=== PATIENT | female | born 1970 ===

== ENCOUNTER 2017-02-26 15:32 | Inpatient (IN) ==
[2017-02-26] MEDS ORDERED: SODIUM CHLORIDE 0.9% 1,000 ML IV STA (16:36)
[2017-02-26] MEDS ORDERED: PANTOPRAZOLE 40 MG VIAL IV STA (16:47)
[2017-02-26] MEDS ORDERED: HYDROmorphone 2 MG/1 ML VIAL IV STA (16:47)
[2017-02-26] MEDS ORDERED: ONDANSETRON 4 MG/2 ML VIAL IV STA (16:47)
[2017-02-26] MEDS ORDERED: PANTOPRAZOLE 40 MG VIAL IV ONE (16:59)
[2017-02-26] MEDS ORDERED: ONDANSETRON 4 MG/2 ML VIAL ONE (16:59)
[2017-02-26] MEDS ORDERED: HYDROmorphone 2 MG/1 ML VIAL ONE (17:00)
--- NOTE | 2017-02-26 17:13 | Emergency Department Note ---
Ama Patel Emily, am scribing for, and in the presence of, Aravind Vasquez MD 16: 34. Christina Patel Charles R, MD, personally performed the services described in this documentation, ascribed by Cata Serrato in my presence, and it is both accurate and complete 713 . Arrival - Arrival Chief Complaint: Abdominal / Flank Pain Stated Complaint: abdominal pain ED Nursing Triage Note: Transfer from [facility] for further evaluation of pancreatitis. c/o right upper quadrant abdominal pain onset one week ago. +nausea/vomiting. +chills. Mode of Arrival: Stretcher Limitations: No Limitations Source: Patient - History of Present Illness HPI Narrative: Pt is a 46 y/o female who was transferred from [place] to ED for further evaluation of pancreatitis. Pt c/o RUQ pain along with N/V, breathing hurts chills and diaphoresis that has been ongoing for a week. Pt is a former ETOH user. PMHx of cholecystectomy - January 15, 2017 in [place]; filter in stomach, Lupus , hx of blood clot. Pt admits to being hospitalized few months ago for pancreatitis. Onset (ago): week(s) Consistency: constant Severity: moderate Severity scale (1-10): 5 Quality: aching Date of Last Menstrual Period: hyst Allergies/Adverse Reactions: Allergies Allergy/AdvReac Type Severity Reaction Status Date / Time No Known Allergies Allergy Verified 02/26/17 15:41 Home Medications: Home Medications Medication Instructions Recorded Confirmed Type Baclofen Tab [Lioresal] 10 mg PO TID 09/13/15 04/19/16 History Gabapentin Cap/Tab [Neurontin 600 mg PO QID 09/13/15 04/19/16 History Cap/Tab] Lisinopril 10 mg PO DAILY 09/13/15 04/19/16 History Clindamycin Cap [Cleocin Cap] 300 mg PO Q6HR 10 Days 04/27/16 Rx Diclofenac 1% Gel [Voltaren 1% Gel] 1 applic TOP QID #7 gel 04/27/16 Rx Insulin Detemir [Levemir] 95 unit SUBCUT BEDTIME #10 ml 04/27/16 Rx Insulin Lispro [HumaLOG] 35 unit SUBCUT AC BREAKFAST #7 ml 04/27/16 Rx Insulin Lispro [HumaLOG] See Protocol SUBCUT ACHS #7 ml 04/27/16 Rx Rivaroxaban [Xarelto] 20 mg PO DAILY W/BREAKFAST 30 Days 04/27/16 Rx oxyCODONE/ACETAMINOPHEN 5-325 2 tablet PO Q6H PRN #20 tablet 04/27/16 Rx [Percocet 5-325] Review of System - Review of System 12 point system: reviewed and no additional remarkable complaints except as stated - Review of System Constitutional: Present: chills, diaphoresis. Absent: fever Respiratory: Absent: respiratory distress Cardiovascular: Absent: chest pain Gastrointestinal: Present: abdominal pain, nausea, vomiting Musculoskeletal: Absent: arm pain, back pain, leg pain, neck pain Skin: Absent: rash Neurological: Absent: headache Medical,Surgical,& Family Hx - Medical History Cardio: History of: Hypertension Neurology: History of: Peripheral Neuropathy Endocrine: History of: Diabetes Mellitus (IDDM) Rheumatology: History of;: Rheumatoid Arthritis Respiratory: History of: Pulmonary Embolism Hematology: History of: Blood Disorders (Lupus anticoagulant) Other: History of: Miscellaneous Medical Problems (DVT left leg) - Surgical History Thoracic Surgeries: Patient denies;: Organ Transplant Abdominal Surgeries: Surgical HX of: Cholecystectomy Reproductive Surgeries: Surgical HX of;: Hysterectomy Patient denies;: Gynecologic Surgery - Family History Family History: Reports;: Family Diabetes, Family Hypertension Denies;: Family Cancer - Social History Smoking Status: Unknown if ever smoked Frequency of Alcohol Use: None Type of Drug Use: None Functional capacity: independent ambulation Exam Vital Signs: Vital Signs Temperature 97.1 F L 02/26/17 16:28 Pulse Rate 89 02/26/17 16:28 Respiratory Rate 20 02/26/17 16:28 Blood Pressure 118/65 02/26/17 16:28 O2 Sat by Pulse Oximetry 97 02/26/17 15:32 - General General appearance: alert, in no apparent distress - Head Head exam: Present: atraumatic, normocephalic - Eye Eye exam: Present: PERRL, EOMI - ENT ENT exam: Present: mucous membranes moist. Absent: mucous membranes dry - Neck Neck exam: Present: full ROM. Absent: tenderness - Chest Chest inspection: Present: symmetric chest wall rise. Absent: tenderness - Respiratory Respiratory exam: Present: normal lung sounds bilaterally. Absent: respiratory distress - Cardiovascular Cardiovascular exam: Present: regular rate, normal rhythm, normal heart sounds - Abdominal Exam Abdominal exam: Present: soft, tenderness (RUQ), diminished bowel sounds. Absent: distention, guarding, rebound, normal bowel sounds - Extremities Exam Extremities exam: Present: full ROM. Absent: tenderness, pedal edema - Neurological Exam Neurological exam: Present: alert, oriented X3, CN II-XII intact. Absent: motor sensory deficit - Psychiatric Psychiatric exam: Present: normal affect, normal mood - Skin Skin exam: Present: warm, dry Course - Consultations Consultation #1: Hospitalist will admit patient Time: 17:12 Results - Labs Lab Results: I have reviewed the patients labs Labs: All labs from previous facility reviewed Disposition Clinical Impression: Abdominal pain, Pancreatitis, Epigastric pain, Lupus anticoagulant (LAC) with hemorrhagic disorder, History of DVT (deep vein thrombosis) Case discussed with: patient Disposition: Still a Patient Condition: Stable Time of Disposition: 17:13
--- NOTE | 2017-02-26 17:20 | EKG Report ---
Stationary ECG Study [facility] Test Date: 02/26/2017 5:21:40 PM Pat Name: ARLET LINDQUIST Department: Room: Gender: F Clinical Administrative Coordinator: : 1970 Requested by: Aravind Cooper Order Number: [id number] Reading MD: RICCO LOBATO Intervals [place] Rate: 85 P: 29 NC: 146 QRS: 38 QRSD: 82 T: 45 QT: 355 QTc: 398 Interpretive Statements SINUS RHYTHMAt 85 bpm POSSIBLE RIGHT VENTRICULAR CONDUCTION DELAY NC WP Electronically Signed On 02-28-17 14:09:51 CDT by RICCO LOBATO [email or web address]
--- NOTE | 2017-02-26 17:37 | Hospitalist History & Physical ---
Assessment and Plan (1) Abdominal pain Status: Acute Current Visit: Yes (2) Pancreatitis Status: Acute Assessment and plan: We will rehydrate; keep NPO, manage pain. Will start empiric antibiotics. Will consult GI to evaluate. Current Visit: Yes (3) Hypertension Status: Acute Assessment and plan: Will monitor and adjust as needed. Current Visit: No Qualifiers: Hypertension type: essential hypertension Qualified Code(s): I10 - Essential (primary) hypertension (4) Chronic anticoagulation Status: Chronic Assessment and plan: The patient has history of DVT; however not on any agents at the present time. We will start Lovenox and apply scd's. Current Visit: No (5) Diabetes mellitus Status: Chronic Assessment and plan: Will obtain HGA1C; start accuchecks with sliding scale; consult adult educator. Current Visit: No Qualifiers: Diabetes mellitus type: type 2 Diabetes mellitus complication status: with unspecified complications History of Present Illness Chief complaint: abdominal pain/pancretitis History of present illness: This is very unfortunate 46 year old female that presented to the ED at [facility] as a lateral transfer from the [facility] for evaluation of right upper quadrant pain. She has a rather extensive medical history significant for hypertension, diabetes mellitus , pulmonary embolism, deep vein thrombosis, alcohol abuse, fatty liver disease, peripheral neuropathy, rheumatoid arthritis, and lupus anticoagulant syndrome. She has a surgical history of toe amputations, hysterectomy, cholecystectomy, IVC filter placement. The patient presented to the ED at [facility] today with a compliant of abdominal pain, nausea, vomiting, shortness of breath, chills, and diaphoresis. She reports the onset of symptoms one week prior to presentation. She atrributed the presenting symptoms to her recent removal of her gall bladder in 12/2016. CT of abdomen was obtained which revealed no acute intra-abdominal abnormality is seen. Labs were obtained which revealed a lipase of 975, CRP of 2.9 and glucose of 561. She was transported [facility] for continuation of care. After discussion with Dr. Vasquez and Dr. Steel, the patient will be admitted to the hospitalist services for continuation of care. We will consult GI to evaluate. Home Medications Medication Instructions Recorded Confirmed Type Baclofen Tab [Lioresal] 10 mg PO TID 09/13/15 04/19/16 History Gabapentin Cap/Tab [Neurontin 600 mg PO QID 09/13/15 04/19/16 History Cap/Tab] Lisinopril 10 mg PO DAILY 09/13/15 04/19/16 History Clindamycin Cap [Cleocin Cap] 300 mg PO Q6HR 10 Days 04/27/16 Rx Diclofenac 1% Gel [Voltaren 1% Gel] 1 applic TOP QID #7 gel 04/27/16 Rx Insulin Detemir [Levemir] 95 unit SUBCUT BEDTIME #10 ml 04/27/16 Rx Insulin Lispro [HumaLOG] 35 unit SUBCUT AC BREAKFAST #7 ml 04/27/16 Rx Insulin Lispro [HumaLOG] See Protocol SUBCUT ACHS #7 ml 04/27/16 Rx Rivaroxaban [Xarelto] 20 mg PO DAILY W/BREAKFAST 30 Days 04/27/16 Rx oxyCODONE/ACETAMINOPHEN 5-325 2 tablet PO Q6H PRN #20 tablet 04/27/16 Rx [Percocet 5-325] Allergies Allergy/AdvReac Type Severity Reaction Status Date / Time No Known Allergies Allergy Verified 02/26/17 15:41 Medical,Surgical,& Family Hx - Medical History Cardio: History of: Hypertension Neurology: History of: Peripheral Neuropathy Endocrine: History of: Diabetes Mellitus (IDDM) Rheumatology: History of;: Rheumatoid Arthritis Respiratory: History of: Pulmonary Embolism Other: History of: Miscellaneous Medical Problems (DVT left leg) - Surgical History Thoracic Surgeries: Patient denies;: Organ Transplant Abdominal Surgeries: Surgical HX of: Cholecystectomy Reproductive Surgeries: Surgical HX of;: Hysterectomy Patient denies;: Gynecologic Surgery - Family History Family History: Reports;: Family Diabetes, Family Hypertension Denies;: Family Cancer - Social History Smoking Status: Unknown if ever smoked Frequency of Alcohol Use: None Type of Drug Use: None Marital Status: Single Lives With:: Alone Functional capacity: independent ambulation 12 point system: reviewed and no additional remarkable complaints except as stated Exam - Constitutional General appearance: normal weight, no acute distress - Head Head exam: Present: normal inspection, normocephalic, atraumatic - Eye Eye exam: Present: EOMI, scleral icterus. Absent: conjunctival injection Pupils: Present: EDD, normal accommodation - ENT ENT exam: Present: normal exam, normal external ear exam, normal oropharynx - Neck Neck exam: Present: normal inspection. Absent: lymphadenopathy, meningismus, tenderness, thyromegaly - Respiratory Respiratory exam: Present: clear to auscultation bilaterally. Absent: rales, rhonchi, stridor, wheezes - Cardiovascular Cardiovascular exam: Present: regular rate and rhythm. Absent: diastolic murmur , gallop, systolic murmur - GI/Abdominal GI/Abdominal exam: Present: distended, guarding, tenderness - Extremities Exam Extremities exam: Present: full ROM, other (toe amputations) - Back Exam Back exam: Present: normal inspection - Neurological Exam Neurological exam: Present: alert, oriented X3, CN II-XII intact - Psychiatric Psychiatric exam: Present: flat affect - Skin Skin exam: Present: normal color, warm, dry Quality Measures - VTE Deep Vein Thrombosis/Pulmonary Embolism Present on Admission: No
[2017-02-26 18:23] LABS: Basophils % 0.3 % (0.0-0.8); Eosinophils # 0.1 10*3/uL (0.0-0.87); Eosinophils % 1.5 % (0.00-10.9); Hematocrit 31.5 VOL% (35.7-47.0); Hemoglobin 10.7 GM/DL (12.0-16.0); Immature Granulocytes % 0.4 %; Immature Granulocytes Absolute 0.03 #; Lymphocytes # 1.9 10*3/uL (1.4-4.0); Lymphocytes % 24.6 % (21.3-54.2); Mean Corpuscular Hemoglobin 29 PG (27-34); Mean Corpuscular Volume 85.1 FL (87-102); Mean Platelet Volume 11.2 FL (9.6-12.0); Monocytes # 0.8 10*3/uL (0.11-0.8); Monocytes % 9.9 % (1.7-12.7); Neutrophils # 4.9 10*3/uL (1.4-7.4); Neutrophils % 63.3 % (38.7-73.9); Platelet Count 261 T/CUMM (130-400); Red Cell Distribution Width 13.9 % (9.3-17.3); White Blood Count 7.8 T/CUMM (4-12)
[2017-02-26 18:33] LABS: Apearance,Urine Slightly Hazy (Clear); Bilirubin,Urine Negative (Negative); Blood, Urine Negative (Negative); Glucose,Urine (UA) >=500 mg/dL (Negative); Ketones,Urine Negative (Negative); Mucus,Urine Occasional /LPF (Occasional); Nitrite,Urine Negative (Negative); Protein,Urine >=500 MG/DL; RBC,Urine 2 /HPF (0-4); Squamous Epithelial Cell,Urine Occasional /HPF (0-10); Urine Color Yellow (Yellow); Urine Specific Gravity 1.028 (1.001-1.035); Urine Urobilinogen < 2.0 EU/DL (0.2-1.0); WBC,Urine 1 /HPF (0-6)
[2017-02-26 18:51] LABS: Alanine Aminotransferase 18 U/L (13-56); Albumin 2.4 G/DL (3.4-5.0); Alkaline Phosphatase 203 U/L (45-117); Amylase 53 U/L (25-115); Aspartate Amino Transferase 14 U/L (0-37); Bilirubin,Total < 0.39 MG/DL (0.2-1.0); Blood Urea Nitrogen 24 MG/DL (7-18); Calcium 7.5 MG/DL (8.5-10.1); Glucose 189 MG/DL (74-106); Magnesium 2.1 MG/DL (1.8-2.4); Osmolality,Calculated 287.4 MOS/KG (273-304); Sodium 140 MMOL/L (136-145); Total Protein 5.9 G/DL (6.4-8.3); Troponin I Only < 0.015 NG/ML (0.00-0.045)
[2017-02-26 19:05] LABS: Lactic Acid 0.8 MMOL/L (0.4-2.0)
[2017-02-26] MEDS: FAMOTIDINE 20 MG/2 ML VIAL IV SCH (20:57)
[2017-02-26] MEDS: ONDANSETRON 4 MG/2 ML VIAL IV PRN (20:57)
[2017-02-26] MEDS: SODIUM CHLORIDE 0.9% 1,000 ML IV SCH (20:57)
[2017-02-26] MEDS: cefTRIAXone 1,000 MG in SODIUM CHLORIDE 0.9% 100 ML IV SCH (20:57)
[2017-02-26] MEDS: MORPHINE 2 MG/1 ML SYRINGE IV PRN (20:58)
[2017-02-27] MEDS: ONDANSETRON 4 MG/2 ML VIAL IV PRN ×3 (01:00→20:22)
[2017-02-27] MEDS: MORPHINE 2 MG/1 ML SYRINGE IV PRN ×3 (01:01→10:09)
[2017-02-27] MEDS: SODIUM CHLORIDE 0.9% 1,000 ML IV SCH ×3 (05:41→23:18)
[2017-02-27 07:26] LABS: Basophils % 0.2 % (0.0-0.8); Eosinophils # 0.2 10*3/uL (0.0-0.87); Eosinophils % 3.3 % (0.00-10.9); Hematocrit 31.7 VOL% (35.7-47.0); Hemoglobin 10.4 GM/DL (12.0-16.0); Immature Granulocytes % 0.2 %; Immature Granulocytes Absolute 0.01 #; Lymphocytes # 1.7 10*3/uL (1.4-4.0); Lymphocytes % 30.2 % (21.3-54.2); Mean Corpuscular HGB Conc 32.8 GM/DL (32-36); Mean Corpuscular Hemoglobin 29 PG (27-34); Mean Corpuscular Volume 86.8 FL (87-102); Mean Platelet Volume 11.4 FL (9.6-12.0); Monocytes # 0.8 10*3/uL (0.11-0.8); Neutrophils % 52.1 % (38.7-73.9); Platelet Count 253 T/CUMM (130-400); Red Blood Count 3.65 MC/CUMM (3.8-5.5); Red Cell Distribution Width 14.1 % (9.3-17.3); White Blood Count 5.7 T/CUMM (4-12)
[2017-02-27 07:55] LABS: Alanine Aminotransferase 66 U/L (13-56); Albumin 2.1 G/DL (3.4-5.0); Alkaline Phosphatase 211 U/L (45-117); Aspartate Amino Transferase 104 U/L (0-37); Bilirubin,Total < 0.39 MG/DL (0.2-1.0); Blood Urea Nitrogen 16 MG/DL (7-18); Calcium 7.6 MG/DL (8.5-10.1); Total Protein 5.2 G/DL (6.4-8.3)
[2017-02-27 07:56] LABS: Glucose 243 MG/DL (74-106); Osmolality,Calculated 283.7 MOS/KG (273-304); Potassium 4.3 MMOL/L (3.5-5.1); Sodium 138 MMOL/L (136-145); Troponin I Only < 0.015 NG/ML (0.00-0.045)
[2017-02-27] MEDS: FAMOTIDINE 20 MG/2 ML VIAL IV SCH ×2 (08:40→20:24)
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
--- NOTE | 2017-02-27 09:19 | Hospitalist Progress Note ---
<Nisha Rasmussenda - Last Filed: 02/27/17 09:16> Assessment and Plan (1) Abdominal pain Status: Acute Assessment and plan: Continue pain management; awaiting GI evaluation. Current Visit: Yes (2) Pancreatitis Status: Acute Assessment and plan: We will rehydrate; keep NPO, manage pain. Will start empiric antibiotics. Will consult GI to evaluate. /-Patient has consumed clear liquid diet; complaining of increased abdominal pain. Will make NPO; awaiting GI to evaluate. Current Visit: Yes (3) Hypertension Status: Acute Assessment and plan: Will monitor and adjust as needed. Current Visit: No Qualifiers: Hypertension type: essential hypertension Qualified Code(s): I10 - Essential (primary) hypertension (4) Chronic anticoagulation Status: Chronic Assessment and plan: The patient has history of DVT; however not on any agents at the present time. We will start Lovenox and apply scd's. Current Visit: No (5) Diabetes mellitus Status: Chronic Assessment and plan: Will obtain HGA1C; start accuchecks with sliding scale; consult chemical educator. Current Visit: No Qualifiers: Diabetes mellitus type: type 2 Diabetes mellitus complication status: with unspecified complications Hospitalist: Subjective Interval history: Patient seen and examined. Reports multiple stools containing blood and abdominal pain throughout the night. Awaiting GI consult this AM for evaluation. Exam - Constitutional Vitals: Period Temp Pulse Resp BP Sys/Blount Pulse Ox Last 24 Hr 99.1 F-99.5 F 79-88 18-20 115-149/64-82 95-99 General appearance: normal weight, no acute distress - Head Head exam: Present: normal inspection, normocephalic - Eye Eye exam: Present: EOMI. Absent: conjunctival injection Pupils: Present: EDD, normal accommodation - ENT ENT exam: Present: normal exam, normal external ear exam, normal oropharynx - Neck Neck exam: Present: normal inspection. Absent: lymphadenopathy, meningismus, tenderness, thyromegaly - Respiratory Respiratory exam: Present: clear to auscultation bilaterally. Absent: rales, rhonchi, stridor, wheezes - Cardiovascular Cardiovascular exam: Present: regular rate and rhythm. Absent: carotid bruit, diastolic murmur, gallop, JVD, rubs, systolic murmur - GI/Abdominal GI/Abdominal exam: Present: hypoactive bowel sounds, tenderness. Absent: mass - Back Exam Back exam: Present: normal inspection - Neurological Exam Neurological exam: Present: alert, oriented X3, CN II-XII intact - Psychiatric Psychiatric exam: Present: normal affect, normal mood - Skin Skin exam: Present: normal color, warm, dry Results - Labs CBC & BMP: 02/27/17 06:38 02/27/17 06:38 Lab Results: I have reviewed the past 24 hour labs Quality Measures - VTE Contraindication to Pharmacological VTE Prophylaxis: High Risk of Bleeding <Elysia Looney - Last Filed: 02/27/17 16:12> Hospitalist: Subjective Interval history: Patient seen and examined independently of DASH Rasmussen, agree with history, assessment and plan as documented. Still complaining of abdominal pain. Reports that she is allergic to morphine. GI and heme consulted. Exam - Constitutional Vitals: Period Temp Pulse Resp BP Sys/Blount Pulse Ox Last 24 Hr 98.4 F-99.5 F 74-88 18-20 115-152/64-82 95-99 Results - Labs CBC & BMP: 02/27/17 06:38 02/27/17 06:38
[2017-02-27] MEDS ORDERED: DEXTROSE 50% 25 GM/50 ML VIAL IV PRN (11:37)
[2017-02-27] MEDS ORDERED: GLUCAGON 1 MG VIAL IM PRN (11:37)
[2017-02-27] MEDS ORDERED: BACLOFEN 10 MG TABLET PO PRN (13:03)
[2017-02-27] MEDS: GABAPENTIN 600 MG TABLET PO SCH ×2 (14:49→20:23)
[2017-02-27] MEDS: oxyCODONE/ACETAMINOPHEN 5-325 MG TABLET PO PRN (15:37)
[2017-02-27] MEDS: MEPERIDINE 25 MG/1 ML VIAL IM PRN ×2 (16:50→23:17)
[2017-02-27] MEDS: INSULIN REGULAR 100 UNIT/ML SUBCUT SCH ×2 (17:07→20:22)
[2017-02-27] MEDS: cefTRIAXone 1,000 MG in SODIUM CHLORIDE 0.9% 100 ML IV SCH (20:23)
[2017-02-27] MEDS ORDERED: NORTRIPTYLINE 25 MG CAPSULE PO SCH (21:00)
[2017-02-28] MEDS: MEPERIDINE 25 MG/1 ML VIAL IM PRN (05:59)
[2017-02-28] MEDS: SODIUM CHLORIDE 0.9% 1,000 ML IV SCH (08:17)
[2017-02-28] MEDS: FAMOTIDINE 20 MG/2 ML VIAL IV SCH (08:18)
[2017-02-28] MEDS: INSULIN REGULAR 100 UNIT/ML SUBCUT SCH ×2 (08:18→11:21)
[2017-02-28] MEDS: GABAPENTIN 600 MG TABLET PO SCH ×2 (08:19→14:46)
[2017-02-28 08:23] LABS: Basophils % 0.4 % (0.0-0.8); Eosinophils # 0.2 10*3/uL (0.0-0.87); Eosinophils % 2.9 % (0.00-10.9); Hematocrit 33.6 VOL% (35.7-47.0); Hemoglobin 11.2 GM/DL (12.0-16.0); Immature Granulocytes % 0.4 %; Immature Granulocytes Absolute 0.02 #; Lymphocytes # 1.5 10*3/uL (1.4-4.0); Lymphocytes % 27.6 % (21.3-54.2); Mean Corpuscular HGB Conc 33.3 GM/DL (32-36); Mean Corpuscular Hemoglobin 29 PG (27-34); Mean Corpuscular Volume 85.5 FL (87-102); Mean Platelet Volume 10.6 FL (9.6-12.0); Monocytes # 0.5 10*3/uL (0.11-0.8); Monocytes % 9.7 % (1.7-12.7); Neutrophils # 3.3 10*3/uL (1.4-7.4); Platelet Count 286 T/CUMM (130-400); Red Blood Count 3.93 MC/CUMM (3.8-5.5); Red Cell Distribution Width 13.7 % (9.3-17.3); White Blood Count 5.6 T/CUMM (4-12)
[2017-02-28 08:48] LABS: Albumin 2.2 G/DL (3.4-5.0); Bilirubin,Direct 0.1 MG/DL (0.0-0.20); Bilirubin,Indirect 0.9 MG/DL (0.0-1.0); Total Protein 5.5 G/DL (6.4-8.3)
[2017-02-28 08:49] LABS: Albumin 2.3 G/DL (3.4-5.0); Bilirubin,Total 0.5 MG/DL (0.2-1.0); Magnesium 1.8 MG/DL (1.8-2.4); Osmolality,Calculated 285.3 MOS/KG (273-304); Potassium 4.3 MMOL/L (3.5-5.1); Total Protein 5.5 G/DL (6.4-8.3)
[2017-02-28] MEDS ORDERED: LISINOPRIL 20 MG TABLET PO SCH (09:00)
[2017-02-28 09:39] LABS: Hepatitis B Surface Ag Quant 0.35 Index; Hepatitis B Surface Ag Result Negative (Negative)
[2017-02-28 09:46] LABS: Hepatitis A Ab IgM Quant < 0.02 Index; Hepatitis A Ab IgM Result Negative (Negative); Hepatitis B Core IgM Quant 0.16 Index; Hepatitis B Core IgM Result Negative (Negative); Hepatitis C Virus Ab Quant 0.11 Index; Hepatitis C Virus Ab Result Negative (Negative)
--- NOTE | 2017-02-28 10:29 | Hospitalist Progress Note ---
Assessment and Plan (1) Abdominal pain Status: Acute Assessment and plan: Continue pain management; awaiting GI evaluation. (2) Pancreatitis Status: Chronic Assessment and plan: We will rehydrate; keep NPO, manage pain. Will start empiric antibiotics. Will consult GI to evaluate. 5/4-Patient has consumed clear liquid diet; complaining of increased abdominal pain. Will make NPO; awaiting GI to evaluate. (3) Hypertension Status: Chronic Assessment and plan: Will monitor and adjust as needed. Qualifiers: Hypertension type: essential hypertension Qualified Code(s): I10 - Essential (primary) hypertension (4) Chronic anticoagulation Status: Chronic Assessment and plan: The patient has history of DVT; however not on any agents at the present time. We will start Lovenox and apply scd's. (5) Diabetes mellitus Status: Chronic Assessment and plan: Will obtain HGA1C; start accuchecks with sliding scale; consult diabetic educator. Qualifiers: Diabetes mellitus type: type 2 Diabetes mellitus complication status: with unspecified complications Hospitalist: Subjective Interval history: Patient seen and examined; no significant overnight events. Exam - Constitutional Vitals: Period Temp Pulse Resp BP Sys/Blount Pulse Ox Last 24 Hr 97.6 F-98.8 F 72-81 16-18 150-168/75-84 96-99 Results - Labs CBC & BMP: 02/28/17 07:54 02/28/17 07:54 Quality Measures - VTE Contraindication to Pharmacological VTE Prophylaxis: High Risk of Bleeding Specialty Discharge - Follow Up or Referrals Follow up with: Kvng Moses MD [Physician] - 03/17/17 10:45 am
--- NOTE | 2017-02-28 11:23 | History and Physical Update ---
History and Physical Update - History and Physical H&P was reviewed, the patient examined and there: are no changes in the patients condition since last H&P was completed. - Physical Exam Mental Status: alert and oriented Heart: regular rate and rhythm Lung: clear to auscultation Abdomen: within normal limits Vitals: within normal limits
[2017-02-28] MEDS ORDERED: PROPOFOL 200 MG/20 ML VIAL IV ONE (11:30)
[2017-02-28] MEDS ORDERED: LIDOCAINE 2% 5 ML VIAL ONE (11:30)
--- NOTE | 2017-02-28 11:42 | Anesthesia Post-Op ---
Anesthesia Post OP - Post Ansesthetic Evaluation Patient seen in post op: Yes Resp: within normal limits CV: within normal limits Mental: within normal limits Temp: within normal limits [id number]: within normal limits Nausea and Vomiting: within normal limits Pain: within normal limits
--- NOTE | 2017-02-28 11:43 | Operative Note ---
Date of procedure: 02/28/17 Pre-op diagnosis: Dysphagia, epigastric pain Procedure: Procedure: Esophagogastroduodenoscopy with bougie dilation esophagus Brief clinical abstract: Patient is a 47-year-old female with multiple medical issues including history of alcoholic liver disease. She is admitted with recent upper abdominal pain and has had dysphagia to solids for the last few months. She describes having previous dilation for GERD related esophageal stricture in [place] approximately 18 months ago. Patient's serum lipase here is normal. She had prominent pancreatic head on outside CT with only report available at present. Indication for procedure: Dysphagia, recent upper abdominal pain Endoscopic findings:[After informed consent was obtained, the patient was placed in the left lateral decubitus position. The gastroscope was inserted in the upper esophagus under direct vision with no resistance encountered. Esophageal mucosa appeared normal down to the squamocolumnar junction. There was a mildly obstructive fibrous appearing stricture at that level consistent with reflux etiology and with no erosions or ulcerations. Just distal to this was a small hiatal hernia. The endoscope was advanced in the stomach which was carefully examined including retroflexed view of the cardia and fundus with no other abnormality seen. The pyloric channel, duodenal bulb, second and third portion of the duodenum had normal appearance. The endoscope was removed and El dilator size 54 English was inserted in the upper esophagus and advanced beyond the level of the GE junction with mild resistance encountered. No blood was noted on the dilator afterwards and she had no chest pain. She appeared to tolerate the procedure well. Impression: #1 distal esophageal stricture secondary to GERD-status post bougie dilation #2 small hiatal hernia Recommendations: Continue PPI therapy for now. Try to advance diet and could probably discharge if tolerates. If recurrent abdominal pain, would probably repeat CT abdomen with oral and IV contrast. Anesthesia: MAC Surgeon / Physician: Gabriel Hurtado Estimated blood loss: none Specimens: none sent Condition: stable Disposition: post procedure unit Results - Labs CBC & BMP: 02/28/17 07:54 02/28/17 07:54 Discharge Plan - Discharge Medications No Action Lisinopril 20 mg PO DAILY Gabapentin Cap/Tab [Neurontin Cap/Tab] 400 mg PO TID Baclofen Tab [Lioresal] 10 mg PO TID PRN PRN Reason: Muscle Spasm Pantoprazole Tab [Protonix Tab] 40 mg PO DAILY Ondansetron Odt Tab [Zofran Odt] 0.5 tablet PO Q8HR PRN PRN Reason: Nausea metFORMIN XR [Glucophage Xr] 1 tablet PO DAILY W/SUPPER Insulin Aspart [NovoLOG FlexPen] 20 units SUBCUT QAM Insulin Detemir [Levemir] 20 unit SUBCUT TID Insulin Detemir [Levemir] 30 unit SUBCUT BEDTIME Promethazine Tab [Phenergan Tab] 25 mg PO Q6HR PRN PRN Reason: Nausea Nortriptyline [Pamelor] 25 mg PO BEDTIME - Follow Up or Referral - Forms/Instructions
--- NOTE | 2017-02-28 11:48 | Oncology Consult Note ---
History of Present Illness Chief complaint: Lupus anticoagulant History of present illness: Ms. Hi is a 47 year old female who has been on long-term anticoagulation but is currently not on it. 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 In addition, she apparently has tested positive for lupus anticoagulant. She is currently being anticoagulated and I will not repeat these studies presently. She has multiple problems that are probably related to heavy alcohol intake, including pancreatitis and elevated lipase and hypoalbuminemia. She has just undergone EGD for esophageal stricture. Additional problems that complicate her risk for blood clotting include the fact that she is diabetic and her hemoglobin A1c is 13.8. I have examined her today while she was sedated and I did not have the opportunity to ask additional questions. I will add additional comments to this consult note when I return Friday. On physical examination she appears somewhat chronically ill. Eyes: Normal lids and conjunctivae. Neck: Her trachea is midline. Her thyroid is normal. She has no neck masses. Oral mucosa was not examined. Lungs: Breath sounds are normal without rubs, rales or rhonchi. There is symmetrical unlabored chest motion with respiration. Cardiovascular: Her heart rhythm is regular. She has tachycardia. There is no jugular venous distention, clubbing or cyanosis. Abdomen: I palpate no definite masses or organomegaly. Musculoskeletal: She is missing several toes from her right foot. Neurologic: She is currently sedated and neurologic and psychiatric examination cannot really be carried out with the exception of the fact that the patient has no obvious focal neurologic deficits and no evidence of spasticity. My recommendation would be to anticoagulate her once again with low molecular weight heparin and subsequently with 1 of the shorter acting anticoagulants such as Xarelto prior to discharge. I do not recommend continuing to withhold anticoagulation which was evidently the patient's choice. Thank you. Home Medications Medication Instructions Recorded Confirmed Type Baclofen Tab [Lioresal] 10 mg PO TID PRN 09/13/15 02/26/17 History Gabapentin Cap/Tab [Neurontin 400 mg PO TID 09/13/15 02/26/17 History Cap/Tab] Lisinopril 20 mg PO DAILY 09/13/15 02/26/17 History Insulin Aspart [NovoLOG FlexPen] 20 units SUBCUT QAM 02/26/17 02/26/17 History Insulin Detemir [Levemir] 20 unit SUBCUT TID 02/26/17 02/26/17 History Insulin Detemir [Levemir] 30 unit SUBCUT BEDTIME 02/26/17 02/26/17 History Nortriptyline [Pamelor] 25 mg PO BEDTIME 02/26/17 02/26/17 History Ondansetron Odt Tab [Zofran Odt] 0.5 tablet PO Q8HR PRN 02/26/17 02/26/17 History Pantoprazole Tab [Protonix Tab] 40 mg PO DAILY 02/26/17 02/26/17 History Promethazine Tab [Phenergan Tab] 25 mg PO Q6HR PRN 02/26/17 02/26/17 History metFORMIN XR [Glucophage Xr] 1 tablet PO DAILY W/SUPPER 02/26/17 02/26/17 History Oxycodone HCl/Acetaminophen 1 each PO Q6HR PRN #20 tablet 02/28/17 Rx [Percocet 10-325 mg Tablet] Rivaroxaban [Xarelto] 20 mg PO DAILY W/SUPPER #30 tablet 02/28/17 Rx Allergies Allergy/AdvReac Type Severity Reaction Status Date / Time acetaminophen [From [place]] Allergy Unknown Unknown/Unable Verified 02/27/17 17: 44 to obtain hydrocodone [From [place]] Allergy Unknown Unknown/Unable Verified 02/27/17 17:44 to obtain morphine Allergy Unknown Headache Verified 02/27/17 17:44 Medical,Surgical,& Family Hx - Medical History Cardio: History of: Hypertension Psychological: No history of: Anxiety Disorders, ADHD, Behavior Problems, Bipolar Disorder, Depression, Previous Suicide Attempt, Psychiatric/Substance Abuse Tx, Schizophrenia, Violent Behavior, Psychiatric Problems Neurology: History of: Peripheral Neuropathy No history of: Seizures Endocrine: History of: Diabetes Mellitus (IDDM) Rheumatology: History of;: Rheumatoid Arthritis Respiratory: History of: Pulmonary Embolism (pt has ivc filter) Musculoskeletal: History of: Amputation (right great toe) Hematology: History of: Clotting Problems (hx pulmonary embolus), Blood Disorders (Lupus anticoagulant) Other: History of: Miscellaneous Medical Problems (DVT left leg) - Surgical History Cardiac Surgeries: Patient Denies: Cardiac Catheterization Thoracic Surgeries: Patient denies;: Organ Transplant Neurologic Surgeries: Patient denies: Neurologic Surgery Abdominal Surgeries: Surgical HX of: Cholecystectomy (December 2016) Reproductive Surgeries: Surgical HX of;: Hysterectomy Patient denies;: Gynecologic Surgery Orthopedic Surgeries: Surgical HX of;: Orthopedic Surgery (left leg fasciotomy) - Family History Family History: Reports;: Family Diabetes, Family Hypertension Denies;: Family Cancer - Social History Smoking Status: Unknown if ever smoked Frequency of Alcohol Use: None Type of Drug Use: None Exam - Constitutional Vitals: Period Temp Pulse Resp BP Sys/Blount Pulse Ox Last 24 Hr 96.4 F-98.8 F 72-84 12-18 150-180/75-103 96-99 Results - Labs CBC & BMP: 02/28/17 07:54 02/28/17 07:54 Quality Measures - VTE Contraindication to Pharmacological VTE Prophylaxis: High Risk of Bleeding Specialty Discharge - Follow Up or Referrals Follow up with: Kvng Moses MD [Physician] - 2 Weeks
[2017-02-28] MEDS: oxyCODONE/ACETAMINOPHEN 5-325 MG TABLET PO PRN (12:56)
--- NOTE | 2017-02-28 14:19 | Discharge Summary ---
Hospital Course - Hospital Course Hospital Course: This is a 46 year old female that presented to the ED at [facility] from the [facility] for evaluation of right upper quadrant pain. She has a rather extensive medical history significant for hypertension, diabetes mellitus, pulmonary embolism, deep vein thrombosis, alcohol abuse, fatty liver disease, peripheral neuropathy , rheumatoid arthritis, and lupus anticoagulant syndrome. She has a surgical history of toe amputations, hysterectomy, cholecystectomy, IVC filter placement. The patient presented to the ED at [facility] with a compliant of abdominal pain, nausea, vomiting, shortness of breath, chills, and diaphoresis. She reported the onset of symptoms one week prior to presentation. She attributed the presenting symptoms to her recent removal of her gall bladder in 12/2016. CT of abdomen was obtained which revealed no acute intra- abdominal abnormality is seen. Labs were obtained which revealed a lipase of 975 , CRP of 2.9 and glucose of 561. She was admitted to the hospitalist service for acute on chronic pancreatitis. She was treated with pain medications and IV fluids. GI was consulted. She also complained of some dysphagia, with a history of esophageal stricture in the past. EGD was performed which demonstrated a distal esophageal stricture which was dilated, as well as a small hiatal hernia. She tolerated a diet post procedure. She will need a repeat CT abdomen with oral and IV contrast in 2-3 months by her pcp. Hematology was consulted for her history of clots, lupus anticoagulant positive, will restart on xarelto. She has now reached maximum benefit of inpatient stay and will be discharged home. 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 (4) Hypertension Status: Chronic (5) Pancreatitis Status: Chronic Specialty Discharge - Follow Up or Referrals Follow up with: Kvng Moses MD [Physician] - 2 Weeks Discharge Plan - Discharge Data Condition at Discharge: Stable Discharge Diet: diabetic diet Activity: increase activity as tolerated Hygiene: no restrictions Weight Bearing at Discharge: weight bear as tolerated Driving: no restrictions Contact your physician if you experience:: fever over 101, Nausea/Vomiting - Discharge Medications New Rivaroxaban [Xarelto] 20 mg PO DAILY W/SUPPER #30 tablet Oxycodone HCl/Acetaminophen [Percocet 10-325 mg Tablet] 1 each PO Q6HR PRN # 20 tablet PRN Reason: Pain Continue Lisinopril 20 mg PO DAILY Gabapentin Cap/Tab [Neurontin Cap/Tab] 400 mg PO TID Baclofen Tab [Lioresal] 10 mg PO TID PRN PRN Reason: Muscle Spasm Pantoprazole Tab [Protonix Tab] 40 mg PO DAILY Ondansetron Odt Tab [Zofran Odt] 0.5 tablet PO Q8HR PRN PRN Reason: Nausea metFORMIN XR [Glucophage Xr] 1 tablet PO DAILY W/SUPPER Insulin Aspart [NovoLOG FlexPen] 20 units SUBCUT QAM Insulin Detemir [Levemir] 20 unit SUBCUT TID Insulin Detemir [Levemir] 30 unit SUBCUT BEDTIME Promethazine Tab [Phenergan Tab] 25 mg PO Q6HR PRN PRN Reason: Nausea Nortriptyline [Pamelor] 25 mg PO BEDTIME - Follow Up or Referral - Forms/Instructions Exam - Constitutional Vitals: Period Temp Pulse Resp BP Sys/Blount Pulse Ox Last 24 Hr 96.4 F-98.8 F 72-84 12-24 138-180/53-103 96-100 General appearance: normal weight - Head Head exam: Present: normocephalic, atraumatic - Eye Eye exam: Present: EOMI Pupils: Present: EDD - ENT ENT exam: Present: normal exam - Neck Neck exam: Present: normal inspection - Respiratory Respiratory exam: Present: clear to auscultation bilaterally. Absent: rhonchi, wheezes - Cardiovascular Cardiovascular exam: Present: regular rate and rhythm - GI/Abdominal GI/Abdominal exam: Present: normal bowel sounds, soft. Absent: tenderness, rebound - Extremities Exam Extremities exam: Present: normal inspection - Back Exam Back exam: Present: normal inspection - Neurological Exam Neurological exam: Present: alert, oriented X3 - Psychiatric Psychiatric exam: Present: normal affect, normal mood - Skin Skin exam: Present: warm, intact Discharge Results Procedures and tests throughout hospitalization: Pending Orders 02/28/17 08:46 Occult Blood, Stool Routine Labs on day of discharge: Labs from last 24 hours 02/28/17 02/28/17 02/28/17 08:04 07:54 07:54 WBC RBC Hgb Hct MCV MCH MCHC RDW Plt Count MPV Neut % (Auto) Lymph % (Auto) [place] % (Auto) Eos % (Auto) Baso % (Auto) Neut # (Auto) Lymph # (Auto) [place] # (Auto) Eos # (Auto) Baso # (Auto) Immature Gran % Nucleated RBC % Immature Gran # Nucleated RBCs # Sodium 141 Potassium 4.3 Chloride 110 H Carbon Dioxide 24 Anion Gap 11.3 BUN 8 Creatinine 0.80 GFR Calculation 82 BUN/Creatinine Ratio 10.00 Glucose 230 H POC Glucose Hemoglobin A1c 13.8 H Calculated Osmolality 285.3 Calcium 8.0 L Phosphorus 3.0 Magnesium 1.8 Total Bilirubin 0.50 Direct Bilirubin Indirect Bilirubin AST 28 ALT 46 Alkaline Phosphatase 186 H Total Protein 5.5 L Albumin 2.3 L Globulin 3.2 Albumin/Globulin Ratio 0.7 L Lipase Hepatitis A IgM Ab Negative Hep Bs Antigen Negative Hep B Core IgM Ab Negative Hepatitis C Antibody Negative 02/28/17 02/28/17 02/28/17 07:54 07:54 07:13 WBC 5.6 RBC 3.93 Hgb 11.2 L Hct 33.6 L MCV 85.5 L MCH 29 MCHC 33.3 RDW 13.7 Plt Count 286 MPV 10.6 Neut % (Auto) 59.0 Lymph % (Auto) 27.6 [place] % (Auto) 9.7 Eos % (Auto) 2.9 Baso % (Auto) 0.4 Neut # (Auto) 3.3 Lymph # (Auto) 1.5 [place] # (Auto) 0.5 Eos # (Auto) 0.2 Baso # (Auto) 0.0 Immature Gran % 0.4 Nucleated RBC % 0.0 Immature Gran # 0.02 Nucleated RBCs # 0.00 Sodium Potassium Chloride Carbon Dioxide Anion Gap BUN Creatinine GFR Calculation BUN/Creatinine Ratio Glucose POC Glucose 240 H Hemoglobin A1c Calculated Osmolality Calcium Phosphorus Magnesium Total Bilirubin 1.00 Direct Bilirubin 0.10 Indirect Bilirubin 0.9 AST 29 ALT 46 Alkaline Phosphatase 190 H Total Protein 5.5 L Albumin 2.2 L Globulin Albumin/Globulin Ratio Lipase 112.0 D Hepatitis A IgM Ab Hep Bs Antigen Hep B Core IgM Ab Hepatitis C Antibody 02/27/17 02/27/17 19:35 15:58 WBC RBC Hgb Hct MCV MCH MCHC RDW Plt Count MPV Neut % (Auto) Lymph % (Auto) [place] % (Auto) Eos % (Auto) Baso % (Auto) Neut # (Auto) Lymph # (Auto) [place] # (Auto) Eos # (Auto) Baso # (Auto) Immature Gran % Nucleated RBC % Immature Gran # Nucleated RBCs # Sodium Potassium Chloride Carbon Dioxide Anion Gap BUN Creatinine GFR Calculation BUN/Creatinine Ratio Glucose POC Glucose 280 H 318 H Hemoglobin A1c Calculated Osmolality Calcium Phosphorus Magnesium Total Bilirubin Direct Bilirubin Indirect Bilirubin AST ALT Alkaline Phosphatase Total Protein Albumin Globulin Albumin/Globulin Ratio Lipase Hepatitis A IgM Ab Hep Bs Antigen Hep B Core IgM Ab Hepatitis C Antibody DS: Provider Date of admission: 02/26/17 16:57 Primary care physician: Latanya Gomez MD Attending physician on admission: Elysia Looney MD Consults: 02/26/17 20:07 Consult to Physician [CONS] Routine Comment: pancreatitis Consulting Provider: Gabriel Hurtado Person Notified: Melba Date Notified: 02/27/17 Time Notified: 08:30 02/26/17 20:18 Consult to Dietitian [CONS] Routine Reason for Dietitian: Other 02/27/17 09:22 Consult to Physician [CONS] Routine Comment: Consulting Provider: Kvng Moses When should Consulting Provider be notified: Now Person Notified: Holly Date Notified: 02/27/17 Time Notified: 11:18 Discharging clinician: Elysia Looney MD
[2017-02-28 16:00] VITALS: BP 160/89
== END 2017-02-28 16:05 | disposition home or self-care (01) | DRG 439 ==
LOC: EDUNIT# → N.ED 15:32 → N.EDINP 16:57 → N.5E 20:06
PROVIDERS: ADMIT Internal Medicine; ATTEND Internal Medicine

== ENCOUNTER 2018-02-15 00:06 | Inpatient (IN) ==
[2018-02-15] MEDS ORDERED: DEXTROSE 50% 25 GM/50 ML VIAL IV PRN (03:25)
[2018-02-15] MEDS ORDERED: GLUCAGON 1 MG VIAL IM PRN (03:25)
[2018-02-15] MEDS ORDERED: oxyCODONE/ACETAMINOPHEN 5-325 MG TABLET PO PRN (03:30)
[2018-02-15] MEDS ORDERED: ENOXAPARIN 40 MG/0.4 ML SYRINGE SUBCUT ONE (03:42)
[2018-02-15 05:21] LABS: Basophils % 0.4 % (0.0-0.8); Eosinophils # 0.3 10*3/uL (0.0-0.87); Hematocrit 30.3 VOL% (35.7-47.0); Hemoglobin 10.2 GM/DL (12.0-16.0); Immature Granulocytes % 0.4 %; Immature Granulocytes Absolute 0.04 #; Lymphocytes # 2.8 10*3/uL (1.4-4.0); Lymphocytes % 25.1 % (21.3-54.2); Mean Corpuscular HGB Conc 33.7 GM/DL (32-36); Mean Corpuscular Hemoglobin 30 PG (27-34); Mean Corpuscular Volume 88.6 FL (87-102); Mean Platelet Volume 11.3 FL (9.6-12.0); Monocytes # 1.2 10*3/uL (0.11-0.8); Monocytes % 11.1 % (1.7-12.7); Neutrophils # 6.7 10*3/uL (1.4-7.4); Platelet Count 307 T/CUMM (130-400); Red Blood Count 3.42 MC/CUMM (3.8-5.5); Red Cell Distribution Width 13.1 % (9.3-17.3); White Blood Count 11.1 T/CUMM (4-12)
[2018-02-15] MEDS: LEVOFLOXACIN INJ 500 MG in PREMIX 1 EACH IV SCH (05:44)
[2018-02-15 05:53] LABS: Albumin 2.2 G/DL (3.4-5.0); Bilirubin,Total 0.6 MG/DL (0.2-1.0); Calcium 7.7 MG/DL (8.5-10.1); Potassium 4.9 MMOL/L (3.5-5.1); Total Protein 5.8 G/DL (6.4-8.3)
[2018-02-15] MEDS ORDERED: INSULIN GLARGINE 100 UNIT/ML SUBCUT SCH (09:00)
[2018-02-15] MEDS ORDERED: PANTOPRAZOLE 40 MG TABLET PO SCH (09:00)
[2018-02-15] MEDS ORDERED: ONDANSETRON ODT 4 MG TABLET PO PRN (10:40)
[2018-02-15] MEDS ORDERED: BACLOFEN 10 MG TABLET PO PRN (10:40)
[2018-02-15] MEDS: INSULIN LISPRO 100 UNIT/ML SUBCUT SCH ×4 (11:21→21:55)
[2018-02-15] MEDS: VANCOMYCIN INJ 1,000 MG in SODIUM CHLORIDE 0.9% 250 ML IV SCH (11:22)
[2018-02-15] MEDS: RIVAROXABAN 20 MG TABLET PO SCH (11:23)
[2018-02-15] MEDS: PANTOPRAZOLE 40 MG TABLET PO SCH ×2 (11:23→21:55)
[2018-02-15] MEDS: LISINOPRIL 10 MG TABLET PO SCH (11:23)
[2018-02-15] MEDS: ONDANSETRON 4 MG/2 ML VIAL IV PRN ×3 (11:24→21:55)
[2018-02-15] MEDS: HYDROmorphone 2 MG/1 ML VIAL IV PRN ×3 (11:29→21:58)
[2018-02-15] MEDS: GABAPENTIN 400 MG CAPSULE PO SCH ×2 (14:47→21:56)
[2018-02-15] MEDS ORDERED: RIVAROXABAN 20 MG TABLET PO SCH (17:00)
[2018-02-15] MEDS ORDERED: INSULIN DETEMIR 40 UNIT SUBCUT SCH (21:00)
[2018-02-15] MEDS: INSULIN GLARGINE 100 UNIT/ML SUBCUT SCH (21:56)
[2018-02-16] MEDS: HYDROmorphone 2 MG/1 ML VIAL IV PRN ×5 (06:38→22:12)
[2018-02-16] MEDS: ONDANSETRON 4 MG/2 ML VIAL IV PRN ×2 (07:51→22:58)
[2018-02-16] MEDS: LEVOFLOXACIN INJ 500 MG in PREMIX 1 EACH IV SCH (07:53)
[2018-02-16] MEDS: INSULIN LISPRO 100 UNIT/ML SUBCUT SCH ×4 (08:31→22:12)
[2018-02-16] MEDS: PANTOPRAZOLE 40 MG TABLET PO SCH ×2 (08:48→22:07)
[2018-02-16] MEDS: GABAPENTIN 400 MG CAPSULE PO SCH ×3 (08:48→22:07)
[2018-02-16] MEDS: LISINOPRIL 10 MG TABLET PO SCH (08:48)
[2018-02-16] MEDS: RIVAROXABAN 20 MG TABLET PO SCH (08:48)
[2018-02-16] MEDS: VANCOMYCIN INJ 1,000 MG in SODIUM CHLORIDE 0.9% 250 ML IV SCH (08:53)
[2018-02-16] MEDS: INSULIN GLARGINE 100 UNIT/ML SUBCUT SCH (22:05)
[2018-02-17] MEDS: HYDROmorphone 2 MG/1 ML VIAL IV PRN ×2 (03:15→08:25)
[2018-02-17 04:32] LABS: Basophils % 0.5 % (0.0-0.8); Eosinophils # 0.3 10*3/uL (0.0-0.87); Eosinophils % 3.1 % (0.00-10.9); Hemoglobin 10.4 GM/DL (12.0-16.0); Immature Granulocytes % 0.5 %; Immature Granulocytes Absolute 0.04 #; Lymphocytes # 2.2 10*3/uL (1.4-4.0); Lymphocytes % 27.6 % (21.3-54.2); Mean Corpuscular HGB Conc 33.5 GM/DL (32-36); Mean Corpuscular Hemoglobin 30 PG (27-34); Mean Corpuscular Volume 88.6 FL (87-102); Mean Platelet Volume 10.2 FL (9.6-12.0); Monocytes # 0.9 10*3/uL (0.11-0.8); Monocytes % 11.4 % (1.7-12.7); Neutrophils # 4.6 10*3/uL (1.4-7.4); Neutrophils % 56.9 % (38.7-73.9); Platelet Count 308 T/CUMM (130-400); Red Cell Distribution Width 12.7 % (9.3-17.3); White Blood Count 8.1 T/CUMM (4-12)
[2018-02-17 05:06] LABS: Osmolality,Calculated 282.8 MOS/KG (273-304); Potassium 4.9 MMOL/L (3.5-5.1)
[2018-02-17] MEDS: LEVOFLOXACIN INJ 500 MG in PREMIX 1 EACH IV SCH (05:50)
[2018-02-17] MEDS: INSULIN LISPRO 100 UNIT/ML SUBCUT SCH ×3 (08:17→17:25)
[2018-02-17] MEDS: GABAPENTIN 400 MG CAPSULE PO SCH ×2 (08:18→17:24)
[2018-02-17] MEDS: PANTOPRAZOLE 40 MG TABLET PO SCH (08:18)
[2018-02-17] MEDS: LISINOPRIL 10 MG TABLET PO SCH (08:18)
[2018-02-17] MEDS: RIVAROXABAN 20 MG TABLET PO SCH (08:18)
[2018-02-17] MEDS: VANCOMYCIN INJ 1,000 MG in SODIUM CHLORIDE 0.9% 250 ML IV SCH (08:21)
[2018-02-17] MEDS ORDERED: oxyCODONE/ACETAMINOPHEN 5-325 MG TABLET PO PRN (10:56)
[2018-02-17] MEDS ORDERED: fentaNYL 75 MCG/HR PATCH TRANSDERM SCH (11:00)
[2018-02-17 13:07] VITALS: BP 140/69
[2018-02-17] MEDS ORDERED: VANCOMYCIN INJ 1,000 MG in SODIUM CHLORIDE 0.9% 250 ML IV SCH (20:00)
== END 2018-02-17 18:30 | disposition home or self-care (01) | DRG 264 ==
LOC: SUATTDRO 01:06 → N.TELES 01:06 → N.3E 02-17 10:37
PROVIDERS: ATTEND Internal Medicine

== ENCOUNTER 2018-12-25 03:44 | Observation (INO) ==
[2018-12-25 04:45] LABS: Basophils # 0.1 10*3/uL (0.0-0.2); Basophils % 0.8 % (0.0-0.8); Eosinophils # 0.3 10*3/uL (0.0-0.87); Eosinophils % 2.1 % (0.00-10.9); Hematocrit 35.4 VOL% (35.7-47.0); Hemoglobin 11.5 GM/DL (12.0-16.0); Immature Granulocytes % 0.6 %; Immature Granulocytes Absolute 0.07 #; Lymphocytes # 3.6 10*3/uL (1.4-4.0); Lymphocytes % 30.3 % (21.3-54.2); Mean Corpuscular HGB Conc 32.5 GM/DL (32-36); Mean Corpuscular Hemoglobin 29 PG (27-34); Mean Corpuscular Volume 87.6 FL (87-102); Mean Platelet Volume 10.6 FL (9.6-12.0); Monocytes # 1.2 10*3/uL (0.11-0.8); Monocytes % 10.4 % (1.7-12.7); Neutrophils # 6.6 10*3/uL (1.4-7.4); Neutrophils % 55.8 % (38.7-73.9); Platelet Count 367 T/CUMM (130-400); Red Blood Count 4.04 MC/CUMM (3.8-5.5); Red Cell Distribution Width 13.4 % (9.3-17.3); White Blood Count 11.8 T/CUMM (4-12)
[2018-12-25 05:03] LABS: Alanine Aminotransferase 16 U/L (13-56); Alkaline Phosphatase 212 U/L (45-117); Aspartate Amino Transferase 13 U/L (0-37); Bilirubin,Total < 0.39 MG/DL (0.2-1.0); Blood Urea Nitrogen 23 MG/DL (7-18); Glucose 370 MG/DL (74-106); Osmolality,Calculated 293.7 MOS/KG (273-304); Potassium 4.1 MMOL/L (3.5-5.1); Sodium 138 MMOL/L (136-145); Total Protein 6.6 G/DL (6.4-8.3)
[2018-12-25] MEDS ORDERED: DEXTROSE 50% 25 GM/50 ML SYRINGE IV PRN (05:49)
[2018-12-25] MEDS ORDERED: GLUCAGON 1 MG VIAL IM PRN (05:49)
[2018-12-25] MEDS ORDERED: ONDANSETRON 4 MG/2 ML VIAL IV PRN (05:49)
[2018-12-25] MEDS ORDERED: BACLOFEN 10 MG TABLET PO PRN (05:51)
[2018-12-25] MEDS ORDERED: MELOXICAM 7.5 MG TABLET PO PRN (05:51)
[2018-12-25] MEDS ORDERED: MEPERIDINE 25 MG/1 ML VIAL IV STA (06:18)
[2018-12-25] MEDS: oxyCODONE/ACETAMINOPHEN 5-325 MG TABLET PO PRN ×2 (08:41→14:35)
[2018-12-25] MEDS: GABAPENTIN 400 MG CAPSULE PO SCH ×3 (08:41→20:40)
[2018-12-25] MEDS: FUROSEMIDE 40 MG TABLET PO SCH (08:42)
[2018-12-25] MEDS: PANTOPRAZOLE 40 MG TABLET PO SCH (08:42)
[2018-12-25] MEDS: POTASSIUM CHLORIDE 10 MEQ TABLET PO SCH (08:42)
[2018-12-25] MEDS: INSULIN REGULAR 100 UNIT/ML SUBCUT SCH ×4 (08:42→20:48)
[2018-12-25] MEDS: FENOFIBRATE 145 MG TABLET PO SCH (08:42)
[2018-12-25] MEDS: INSULIN LISPRO 100 UNIT/ML SUBCUT SCH ×3 (09:49→20:41)
[2018-12-25] MEDS: MEPERIDINE 25 MG/1 ML VIAL IV PRN ×3 (11:48→21:51)
[2018-12-25] MEDS ORDERED: VANCOMYCIN INJ 1,000 MG in SODIUM CHLORIDE 0.9% 250 ML IV ONE (12:52)
[2018-12-25] MEDS: RIVAROXABAN 20 MG TABLET PO SCH (16:53)
[2018-12-25] MEDS ORDERED: LISINOPRIL 20 MG TABLET PO SCH (21:00)
[2018-12-26] MEDS: MEPERIDINE 25 MG/1 ML VIAL IV PRN ×5 (02:36→23:56)
[2018-12-26 06:10] LABS: Calcium 7.5 MG/DL (8.5-10.1); Osmolality,Calculated 287.4 MOS/KG (273-304); Potassium 5.6 MMOL/L (3.5-5.1)
[2018-12-26] MEDS ORDERED: LIDOCAINE 1% 20 ML VIAL ONE (06:37)
[2018-12-26] MEDS ORDERED: VANCOMYCIN INJ 1,000 MG in SODIUM CHLORIDE 0.9% 250 ML IV ONE (07:00)
[2018-12-26] MEDS: INSULIN REGULAR 100 UNIT/ML SUBCUT SCH ×4 (08:08→20:29)
[2018-12-26] MEDS: INSULIN LISPRO 100 UNIT/ML SUBCUT SCH ×3 (08:20→20:24)
[2018-12-26] MEDS ORDERED: HYDROmorphone 2 MG/1 ML VIAL ONE (09:27)
[2018-12-26] MEDS ORDERED: ONDANSETRON 4 MG/2 ML VIAL ONE (09:27)
[2018-12-26] MEDS ORDERED: MEPERIDINE 25 MG/1 ML VIAL IV PRN (09:30)
[2018-12-26] MEDS ORDERED: PROMETHAZINE INJ 25 MG in SODIUM CHLORIDE 0.9% 50 ML IV PRN (09:30)
[2018-12-26] MEDS: HYDROmorphone 2 MG/1 ML VIAL IV PRN ×4 (09:30→09:45)
[2018-12-26] MEDS ORDERED: ONDANSETRON 4 MG/2 ML VIAL IV PRN (09:30)
[2018-12-26] MEDS ORDERED: MEPERIDINE 25 MG/1 ML VIAL ONE ×2 (09:37)
[2018-12-26] MEDS ORDERED: PROMETHAZINE 25 MG/1 ML VIAL ONE (09:37)
[2018-12-26] MEDS: POTASSIUM CHLORIDE 10 MEQ TABLET PO SCH (12:15)
[2018-12-26] MEDS: GABAPENTIN 400 MG CAPSULE PO SCH ×3 (12:15→20:24)
[2018-12-26] MEDS: PANTOPRAZOLE 40 MG TABLET PO SCH (12:15)
[2018-12-26] MEDS: FENOFIBRATE 145 MG TABLET PO SCH (12:15)
[2018-12-26] MEDS: FUROSEMIDE 40 MG TABLET PO SCH (12:32)
[2018-12-26] MEDS ORDERED: PROPOFOL 200 MG/20 ML VIAL IV ONE (13:10)
[2018-12-26] MEDS ORDERED: MIDAZOLAM 2 MG/2 ML VIAL ONE (13:10)
[2018-12-26] MEDS ORDERED: fentaNYL 100 MCG/2 ML VIAL ONE (13:10)
[2018-12-26] MEDS ORDERED: SODIUM POLYSTYRENE SULFATE 15 GM/60 ML BOTTLE PO STA (13:38)
[2018-12-26] MEDS: oxyCODONE/ACETAMINOPHEN 5-325 MG TABLET PO PRN ×2 (14:02→18:45)
[2018-12-26] MEDS: RIVAROXABAN 20 MG TABLET PO SCH (17:20)
[2018-12-26] MEDS: INSULIN GLARGINE 100 UNIT/ML SUBCUT SCH (20:24)
[2018-12-27] MEDS: MEPERIDINE 25 MG/1 ML VIAL IV PRN ×5 (04:03→21:22)
[2018-12-27] MEDS: oxyCODONE/ACETAMINOPHEN 5-325 MG TABLET PO PRN ×2 (05:20→15:12)
[2018-12-27 06:06] LABS: Basophils # 0.1 10*3/uL (0.0-0.2); Basophils % 0.8 % (0.0-0.8); Eosinophils # 0.3 10*3/uL (0.0-0.87); Eosinophils % 3.5 % (0.00-10.9); Immature Granulocytes % 0.5 %; Immature Granulocytes Absolute 0.04 #; Lymphocytes # 2.9 10*3/uL (1.4-4.0); Lymphocytes % 36.7 % (21.3-54.2); Mean Corpuscular HGB Conc 31.3 GM/DL (32-36); Mean Corpuscular Hemoglobin 29 PG (27-34); Mean Corpuscular Volume 91.2 FL (87-102); Mean Platelet Volume 10.4 FL (9.6-12.0); Monocytes # 0.9 10*3/uL (0.11-0.8); Monocytes % 11.2 % (1.7-12.7); Neutrophils # 3.7 10*3/uL (1.4-7.4); Neutrophils % 47.3 % (38.7-73.9); Platelet Count 309 T/CUMM (130-400); Red Blood Count 3.51 MC/CUMM (3.8-5.5); Red Cell Distribution Width 13.5 % (9.3-17.3); White Blood Count 7.8 T/CUMM (4-12)
[2018-12-27 06:24] LABS: Calcium 7.3 MG/DL (8.5-10.1); Osmolality,Calculated 286.8 MOS/KG (273-304); Potassium 5.1 MMOL/L (3.5-5.1)
[2018-12-27] MEDS: INSULIN REGULAR 100 UNIT/ML SUBCUT SCH ×4 (08:05→20:05)
[2018-12-27] MEDS: GABAPENTIN 400 MG CAPSULE PO SCH ×3 (08:06→20:04)
[2018-12-27] MEDS: FUROSEMIDE 40 MG TABLET PO SCH (08:07)
[2018-12-27] MEDS: FENOFIBRATE 145 MG TABLET PO SCH (08:07)
[2018-12-27] MEDS: PANTOPRAZOLE 40 MG TABLET PO SCH (08:07)
[2018-12-27] MEDS: INSULIN LISPRO 100 UNIT/ML SUBCUT SCH ×3 (09:49→20:05)
[2018-12-27] MEDS: RIVAROXABAN 20 MG TABLET PO SCH (16:18)
[2018-12-27] MEDS: INSULIN GLARGINE 100 UNIT/ML SUBCUT SCH (20:06)
[2018-12-28] MEDS: MEPERIDINE 25 MG/1 ML VIAL IV PRN ×4 (01:17→14:05)
[2018-12-28] MEDS: oxyCODONE/ACETAMINOPHEN 5-325 MG TABLET PO PRN ×2 (03:58→11:39)
[2018-12-28] MEDS ORDERED: hydrALAZINE 20 MG/1 ML VIAL IV ONE (04:13)
[2018-12-28] MEDS: INSULIN REGULAR 100 UNIT/ML SUBCUT SCH ×2 (08:29→11:18)
[2018-12-28] MEDS: INSULIN LISPRO 100 UNIT/ML SUBCUT SCH ×2 (08:30→15:29)
[2018-12-28] MEDS: FENOFIBRATE 145 MG TABLET PO SCH (08:32)
[2018-12-28] MEDS: PANTOPRAZOLE 40 MG TABLET PO SCH (08:32)
[2018-12-28] MEDS: FUROSEMIDE 40 MG TABLET PO SCH (08:32)
[2018-12-28] MEDS: GABAPENTIN 400 MG CAPSULE PO SCH ×2 (08:32→15:29)
[2018-12-28 16:19] VITALS: BP 166/82
== END 2018-12-28 15:43 | disposition home or self-care (01) ==
LOC: EDBD → EDUNIT# → N.EDINP 03:44 → N.ED 03:44 → SUATTDRO 05:49 → N.3E 07:40
PROVIDERS: ADMIT Internal Medicine; ATTEND Internal Medicine

== ENCOUNTER 2019-05-19 18:11 | Inpatient (IN) ==
[2019-05-19] MEDS ORDERED: GLUCAGON 1 MG VIAL IM PRN (21:54)
[2019-05-19] MEDS ORDERED: DEXTROSE 50% 25 GM/50 ML VIAL IV PRN (21:54)
[2019-05-19] MEDS ORDERED: amLODIPine 10 MG TABLET PO ONE (21:59)
[2019-05-19] MEDS ORDERED: hydrALAZINE 20 MG/1 ML VIAL IV PRN (22:00)
[2019-05-19] MEDS: METOPROLOL TARTRATE 25 MG TABLET PO SCH (22:17)
[2019-05-19] MEDS: INSULIN GLARGINE 100 UNIT/ML SUBCUT SCH (22:17)
[2019-05-19] MEDS: HYDROmorphone 2 MG/1 ML VIAL IV PRN (22:18)
[2019-05-19] MEDS: ENOXAPARIN 80 MG/0.8 ML SYRINGE SUBCUT SCH (22:18)
[2019-05-19] MEDS ORDERED: ERGOCALCIFEROL 50,000 UNIT CAPSULE PO SCH (22:30)
[2019-05-19 22:31] LABS: Basophils # 0.1 10*3/uL (0.0-0.2); Basophils % 0.5 % (0.0-0.8); Eosinophils # 0.2 10*3/uL (0.0-0.87); Eosinophils % 1.7 % (0.00-10.9); Hematocrit 33.1 VOL% (35.7-47.0); Hemoglobin 10.9 GM/DL (12.0-16.0); Immature Granulocytes % 0.4 %; Immature Granulocytes Absolute 0.04 #; Lymphocytes # 2.7 10*3/uL (1.4-4.0); Lymphocytes % 29.3 % (21.3-54.2); Mean Corpuscular HGB Conc 32.9 GM/DL (32-36); Mean Corpuscular Volume 87.6 FL (87-102); Mean Platelet Volume 10.4 FL (9.6-12.0); Monocytes % 8.7 % (1.7-12.7); Neutrophils % 59.4 % (38.7-73.9); Platelet Count 312 T/CUMM (130-400); Red Blood Count 3.78 MC/CUMM (3.8-5.5); Red Cell Distribution Width 12.7 % (9.3-17.3); White Blood Count 9.2 T/CUMM (4-12)
[2019-05-19 22:41] LABS: Alanine Aminotransferase 14 U/L (13-56); Albumin 1.8 G/DL (3.4-5.0); Alkaline Phosphatase 207 U/L (45-117); Aspartate Amino Transferase 10 U/L (0-37); Bilirubin,Total < 0.39 MG/DL (0.2-1.0); Blood Urea Nitrogen 18 MG/DL (7-18); Calcium 8.3 MG/DL (8.5-10.1); Glucose 267 MG/DL (74-106); Total Protein 6.6 G/DL (6.4-8.3)
[2019-05-19 22:59] LABS: Apearance,Urine CLEAR (Clear); Bacteria,Urine Occasional /HPF (Few); Bilirubin,Urine Negative (Negative); Blood, Urine Negative (Negative); Glucose,Urine (UA) >=500 mg/dL (Negative); Hyaline Casts,Urine 1 /LPF (0-3); Ketones,Urine Negative (Negative); Nitrite,Urine Negative (Negative); Protein,Urine >=500 MG/DL; RBC,Urine 2 /HPF (0-4); Squamous Epithelial Cell,Urine Occasional /HPF (0-10); Urine Color Straw (Yellow); Urine Specific Gravity 1.018 (1.001-1.035); Urine Urobilinogen < 2.0 EU/DL (0.2-1.0); WBC,Urine <1 /HPF (0-6)
[2019-05-19] MEDS: oxyCODONE/ACETAMINOPHEN 5-325 MG TABLET PO SCH (23:27)
[2019-05-19] MEDS: GABAPENTIN 300 MG CAPSULE PO SCH (23:28)
[2019-05-19] MEDS: BACLOFEN 10 MG TABLET PO SCH (23:28)
[2019-05-19] MEDS: INSULIN LISPRO 100 UNIT/ML SUBCUT SCH (23:29)
[2019-05-20] MEDS ORDERED: LORazepam 2 MG/1 ML VIAL IV ONE (01:26)
[2019-05-20] MEDS ORDERED: ONDANSETRON 4 MG/2 ML VIAL IV PRN (02:34)
[2019-05-20 05:31] LABS: Basophils # 0.1 10*3/uL (0.0-0.2); Basophils % 0.6 % (0.0-0.8); Eosinophils # 0.2 10*3/uL (0.0-0.87); Eosinophils % 2.4 % (0.00-10.9); Hematocrit 32.2 VOL% (35.7-47.0); Hemoglobin 10.7 GM/DL (12.0-16.0); Immature Granulocytes % 0.4 %; Immature Granulocytes Absolute 0.04 #; Lymphocytes # 2.5 10*3/uL (1.4-4.0); Mean Corpuscular HGB Conc 33.2 GM/DL (32-36); Mean Platelet Volume 10.9 FL (9.6-12.0); Monocytes % 9.8 % (1.7-12.7); Neutrophils % 61.8 % (38.7-73.9); Platelet Count 322 T/CUMM (130-400); Red Blood Count 3.62 MC/CUMM (3.8-5.5)
[2019-05-20 05:34] LABS: Calcium 7.9 MG/DL (8.5-10.1); Osmolality,Calculated 282.3 MOS/KG (273-304)
[2019-05-20] MEDS ORDERED: INSULIN LISPRO 100 UNIT/ML SUBCUT SCH (07:30)
[2019-05-20] MEDS ORDERED: MELOXICAM 7.5 MG TABLET PO SCH (09:00)
[2019-05-20] MEDS: INSULIN GLARGINE 100 UNIT/ML SUBCUT SCH ×2 (09:15→21:59)
[2019-05-20] MEDS: GABAPENTIN 300 MG CAPSULE PO SCH ×4 (09:15→21:59)
[2019-05-20] MEDS: amLODIPine 10 MG TABLET PO SCH (09:15)
[2019-05-20] MEDS: FENOFIBRATE 145 MG TABLET PO SCH (09:15)
[2019-05-20] MEDS: METOPROLOL TARTRATE 25 MG TABLET PO SCH ×2 (09:15→21:58)
[2019-05-20] MEDS: PANTOPRAZOLE 40 MG TABLET PO SCH (09:16)
[2019-05-20] MEDS: INSULIN LISPRO 100 UNIT/ML SUBCUT SCH ×4 (09:17→22:00)
[2019-05-20] MEDS: ASPIRIN EC 81 MG TABLET PO SCH (09:17)
[2019-05-20] MEDS: HYDROmorphone 2 MG/1 ML VIAL IV PRN ×3 (09:24→20:28)
[2019-05-20] MEDS ORDERED: SKIN HEALING OINT (AQUAPHOR) 50 GM TUBE TOP PRN (11:08)
[2019-05-20] MEDS: oxyCODONE/ACETAMINOPHEN 5-325 MG TABLET PO SCH ×3 (11:26→21:58)
[2019-05-20 16:55] VITALS: BP 144/78
[2019-05-20] MEDS: ENOXAPARIN 80 MG/0.8 ML SYRINGE SUBCUT SCH (21:58)
[2019-05-20] MEDS: BACLOFEN 10 MG TABLET PO SCH (21:59)
[2019-05-21] MEDS: HYDROmorphone 2 MG/1 ML VIAL IV PRN ×3 (00:58→14:07)
[2019-05-21 04:52] LABS: Basophils # 0.1 10*3/uL (0.0-0.2); Basophils % 0.5 % (0.0-0.8); Eosinophils # 0.2 10*3/uL (0.0-0.87); Eosinophils % 2.2 % (0.00-10.9); Hematocrit 33.2 VOL% (35.7-47.0); Hemoglobin 10.8 GM/DL (12.0-16.0); Immature Granulocytes % 0.4 %; Immature Granulocytes Absolute 0.04 #; Lymphocytes # 2.7 10*3/uL (1.4-4.0); Lymphocytes % 28.7 % (21.3-54.2); Mean Corpuscular HGB Conc 32.5 GM/DL (32-36); Mean Corpuscular Volume 89.7 FL (87-102); Mean Platelet Volume 11.5 FL (9.6-12.0); Neutrophils % 59.2 % (38.7-73.9); Platelet Count 336 T/CUMM (130-400); White Blood Count 9.3 T/CUMM (4-12)
[2019-05-21 05:27] LABS: Osmolality,Calculated 283.7 MOS/KG (273-304)
[2019-05-21] MEDS: INSULIN GLARGINE 100 UNIT/ML SUBCUT SCH (08:51)
[2019-05-21] MEDS: PANTOPRAZOLE 40 MG TABLET PO SCH (08:54)
[2019-05-21] MEDS: FENOFIBRATE 145 MG TABLET PO SCH (08:55)
[2019-05-21] MEDS: amLODIPine 10 MG TABLET PO SCH (08:55)
[2019-05-21] MEDS: GABAPENTIN 300 MG CAPSULE PO SCH ×2 (08:55→12:54)
[2019-05-21] MEDS: METOPROLOL TARTRATE 25 MG TABLET PO SCH (08:56)
[2019-05-21] MEDS: ASPIRIN EC 81 MG TABLET PO SCH (08:56)
[2019-05-21] MEDS ORDERED: ENOXAPARIN 80 MG/0.8 ML SYRINGE SUBCUT SCH (10:00)
[2019-05-21] MEDS: INSULIN LISPRO 100 UNIT/ML SUBCUT SCH ×2 (12:39→12:42)
[2019-05-21] MEDS: oxyCODONE/ACETAMINOPHEN 5-325 MG TABLET PO SCH (12:40)
== END 2019-05-21 16:15 | disposition home or self-care (01) | DRG 300 ==
LOC: N.CC 21:05 → SUATTDRO 21:05
PROVIDERS: ADMIT Internal Medicine; ATTEND Internal Medicine

== ENCOUNTER 2020-02-12 23:04 | Inpatient (IN) ==
[2020-02-13] MEDS ORDERED: diphenhydrAMINE CAP 25 MG CAPSULE PO PRN (03:07)
[2020-02-13] MEDS ORDERED: guaiFENesin/DM ER 600-30 MG TABLET PO PRN (03:07)
[2020-02-13] MEDS ORDERED: GLUCAGON 1 MG VIAL IM PRN (03:07)
[2020-02-13] MEDS ORDERED: ALUMINUM/MAGNES/SIMETH MAX STR 30 ML UDCUP PO PRN (03:07)
[2020-02-13] MEDS ORDERED: NICOTINE 21 MG/24 HR PATCH TRANSDERM PRN (03:07)
[2020-02-13] MEDS ORDERED: DEXTROSE 10% 250 ML BAG IV PRN (03:14)
[2020-02-13] MEDS: MEPERIDINE 25 MG/1 ML VIAL IV PRN ×2 (03:27→08:13)
[2020-02-13 04:02] LABS: Apearance,Urine CLEAR (Clear); Bacteria,Urine Occasional /HPF (Few); Bilirubin,Urine Negative (Negative); Blood, Urine Negative (Negative); Glucose,Urine (UA) >=500 mg/dL (Negative); Hyaline Casts,Urine 3 /LPF (0-3); Ketones,Urine Negative (Negative); Nitrite,Urine Negative (Negative); Protein,Urine >=500 MG/DL; RBC,Urine 3 /HPF (0-4); Squamous Epithelial Cell,Urine Occasional /HPF (0-10); Urine Color Straw (Yellow); Urine Specific Gravity 1.014 (1.001-1.035); Urine Urobilinogen < 2.0 EU/DL (0.2-1.0); WBC,Urine 3 /HPF (0-6)
[2020-02-13] MEDS: INSULIN REGULAR 100 UNIT/ML SUBCUT SCH ×3 (05:17→17:40)
[2020-02-13 06:32] LABS: Basophils # 0.1 10*3/uL (0.0-0.2); Basophils % 0.8 % (0.0-0.8); Eosinophils # 0.4 10*3/uL (0.0-0.87); Eosinophils % 4.1 % (0.00-10.9); Hematocrit 26.7 VOL% (35.7-47.0); Hemoglobin 8.4 GM/DL (12.0-16.0); Immature Granulocytes % 0.3 %; Immature Granulocytes Absolute 0.03 #; Lymphocytes # 2.4 10*3/uL (1.4-4.0); Lymphocytes % 26.6 % (21.3-54.2); Mean Corpuscular HGB Conc 31.5 GM/DL (32-36); Mean Corpuscular Volume 92.4 FL (87-102); Mean Platelet Volume 10.4 FL (9.6-12.0); Monocytes % 9.7 % (1.7-12.7); Neutrophils % 58.5 % (38.7-73.9); Platelet Count 320 T/CUMM (130-400); Red Blood Count 2.89 MC/CUMM (3.8-5.5); Red Cell Distribution Width 14.3 % (9.3-17.3); White Blood Count 9.1 T/CUMM (4-12)
[2020-02-13 07:14] LABS: Albumin 1.2 G/DL (3.4-5.0); Bilirubin,Total 0.8 MG/DL (0.2-1.0); Calcium 7.6 MG/DL (8.5-10.1); Osmolality,Calculated 289.3 MOS/KG (273-304); Total Protein 5.1 G/DL (6.4-8.3)
[2020-02-13] MEDS: GABAPENTIN 300 MG CAPSULE PO SCH ×3 (12:43→21:08)
[2020-02-13] MEDS: HYDROmorphone 2 MG/1 ML VIAL IV PRN ×3 (12:45→21:51)
[2020-02-13] MEDS ORDERED: HEPARIN 5,000 UNIT/1 ML VIAL IV ONE (13:07)
[2020-02-13] MEDS: HEPARIN DRIP 25,000 UNITS/500 ML PREMIX IV SCH (15:36)
[2020-02-13] MEDS: GLIMEPIRIDE 2 MG TABLET PO SCH (21:08)
[2020-02-13] MEDS: hydrALAZINE 20 MG/1 ML VIAL IV PRN (21:09)
[2020-02-14] MEDS: INSULIN REGULAR 100 UNIT/ML SUBCUT SCH ×4 (00:16→18:08)
[2020-02-14] MEDS: HYDROmorphone 2 MG/1 ML VIAL IV PRN ×9 (03:00→22:50)
[2020-02-14] MEDS ORDERED: LIDOCAINE 1% 20 ML VIAL ONE (07:23)
[2020-02-14] MEDS ORDERED: LACTATED RINGERS 1,000 ML IV SCH (08:00)
[2020-02-14] MEDS ORDERED: ONDANSETRON 4 MG/2 ML VIAL IV PRN (08:35)
[2020-02-14] MEDS ORDERED: ONDANSETRON 4 MG/2 ML VIAL ONE (08:36)
[2020-02-14] MEDS ORDERED: HYDROmorphone 2 MG/1 ML VIAL ONE (08:36)
[2020-02-14] MEDS: PANTOPRAZOLE 40 MG TABLET PO SCH (09:52)
[2020-02-14] MEDS: GABAPENTIN 300 MG CAPSULE PO SCH ×4 (09:52→21:04)
[2020-02-14] MEDS: GLIMEPIRIDE 2 MG TABLET PO SCH ×2 (09:52→21:04)
[2020-02-14 10:10] LABS: Basophils # 0.1 10*3/uL (0.0-0.2); Basophils % 0.6 % (0.0-0.8); Eosinophils # 0.3 10*3/uL (0.0-0.87); Eosinophils % 4.3 % (0.00-10.9); Hematocrit 30.9 VOL% (35.7-47.0); Hemoglobin 9.4 GM/DL (12.0-16.0); Immature Granulocytes % 0.5 %; Immature Granulocytes Absolute 0.04 #; Lymphocytes % 24.5 % (21.3-54.2); Mean Corpuscular HGB Conc 30.4 GM/DL (32-36); Mean Corpuscular Volume 94.8 FL (87-102); Mean Platelet Volume 9.7 FL (9.6-12.0); Monocytes % 8.8 % (1.7-12.7); Neutrophils % 61.3 % (38.7-73.9); Platelet Count 338 T/CUMM (130-400); Red Blood Count 3.26 MC/CUMM (3.8-5.5); Red Cell Distribution Width 14.4 % (9.3-17.3)
[2020-02-14] MEDS ORDERED: propofoL 200 MG/20 ML VIAL IV ONE (10:44)
[2020-02-14] MEDS ORDERED: MIDAZOLAM 2 MG/2 ML VIAL ONE (10:45)
[2020-02-14] MEDS ORDERED: KETAMINE 500 MG/10 ML VIAL ONE (10:45)
[2020-02-14 10:46] LABS: Alanine Aminotransferase 9 U/L (13-56); Albumin 1.2 G/DL (3.4-5.0); Alkaline Phosphatase 165 U/L (45-117); Aspartate Amino Transferase 8 U/L (0-37); Bilirubin,Total < 0.39 MG/DL (0.2-1.0); Blood Urea Nitrogen 19 MG/DL (7-18); Calcium 7.6 MG/DL (8.5-10.1); Estimated Glom Filtration Rate 25 ML/MIN; Glucose 124 MG/DL (74-106); Osmolality,Calculated 281.4 MOS/KG (273-304); Total Protein 5.6 G/DL (6.4-8.3)
[2020-02-14] MEDS: HEPARIN DRIP 25,000 UNITS/500 ML PREMIX IV SCH (17:07)
[2020-02-14] MEDS: hydrALAZINE 20 MG/1 ML VIAL IV PRN (21:05)
[2020-02-14] MEDS ORDERED: hydrALAZINE 20 MG/1 ML VIAL IV ONE (22:37)
[2020-02-14 23:43] LABS: Troponin I < 0.015 NG/ML (0.00-0.045)
[2020-02-15] MEDS: INSULIN REGULAR 100 UNIT/ML SUBCUT SCH ×4 (00:46→17:43)
[2020-02-15] MEDS: ONDANSETRON 4 MG/2 ML VIAL IV PRN (00:53)
[2020-02-15] MEDS: HEPARIN DRIP 25,000 UNITS/500 ML PREMIX IV SCH ×4 (00:56→21:18)
[2020-02-15] MEDS: HYDROmorphone 2 MG/1 ML VIAL IV PRN ×5 (03:00→20:12)
[2020-02-15 07:35] LABS: Basophils # 0.1 10*3/uL (0.0-0.2); Basophils % 0.6 % (0.0-0.8); Eosinophils # 0.3 10*3/uL (0.0-0.87); Eosinophils % 2.9 % (0.00-10.9); Hematocrit 29.9 VOL% (35.7-47.0); Hemoglobin 9.5 GM/DL (12.0-16.0); Immature Granulocytes % 0.4 %; Immature Granulocytes Absolute 0.04 #; Lymphocytes # 2.5 10*3/uL (1.4-4.0); Lymphocytes % 23.3 % (21.3-54.2); Mean Corpuscular HGB Conc 31.8 GM/DL (32-36); Mean Platelet Volume 11.4 FL (9.6-12.0); Monocytes % 7.6 % (1.7-12.7); Neutrophils % 65.2 % (38.7-73.9); Red Blood Count 3.25 MC/CUMM (3.8-5.5); Red Cell Distribution Width 14.7 % (9.3-17.3)
[2020-02-15 07:38] LABS: Platelet Count 248 T/CUMM (130-400); White Blood Count 10.8 T/CUMM (4-12)
[2020-02-15 07:54] LABS: Alanine Aminotransferase 12 U/L (13-56); Albumin 1.4 G/DL (3.4-5.0); Alkaline Phosphatase 182 U/L (45-117); Aspartate Amino Transferase 9 U/L (0-37); Bilirubin,Total < 0.39 MG/DL (0.2-1.0); Blood Urea Nitrogen 23 MG/DL (7-18); Calcium 7.7 MG/DL (8.5-10.1); Estimated Glom Filtration Rate 20 ML/MIN; Glucose 209 MG/DL (74-106)
[2020-02-15 07:57] LABS: Troponin I < 0.015 NG/ML (0.00-0.045)
[2020-02-15] MEDS: GABAPENTIN 300 MG CAPSULE PO SCH ×3 (08:20→20:13)
[2020-02-15] MEDS: GLIMEPIRIDE 2 MG TABLET PO SCH ×2 (08:20→20:13)
[2020-02-15] MEDS: PANTOPRAZOLE 40 MG TABLET PO SCH (08:20)
[2020-02-15] MEDS: SODIUM CHLORIDE 0.9% 1,000 ML IV SCH (15:40)
[2020-02-15] MEDS ORDERED: amLODIPine 10 MG TABLET PO ONE (17:16)
[2020-02-16] MEDS: INSULIN REGULAR 100 UNIT/ML SUBCUT SCH ×4 (00:21→19:42)
[2020-02-16] MEDS: HYDROmorphone 2 MG/1 ML VIAL IV PRN ×4 (00:21→12:43)
[2020-02-16] MEDS: SODIUM CHLORIDE 0.9% 1,000 ML IV SCH ×3 (04:30→19:41)
[2020-02-16] MEDS: HEPARIN DRIP 25,000 UNITS/500 ML PREMIX IV SCH (06:42)
[2020-02-16] MEDS: ONDANSETRON 4 MG/2 ML VIAL IV PRN (06:49)
[2020-02-16 07:29] LABS: Albumin 1.2 G/DL (3.4-5.0); Bilirubin,Total 1.1 MG/DL (0.2-1.0); Calcium 7.9 MG/DL (8.5-10.1); Osmolality,Calculated 289.3 MOS/KG (273-304); Total Protein 5.5 G/DL (6.4-8.3)
[2020-02-16 07:51] LABS: Basophils # 0.1 10*3/uL (0.0-0.2); Basophils % 0.6 % (0.0-0.8); Eosinophils # 0.5 10*3/uL (0.0-0.87); Eosinophils % 4.4 % (0.00-10.9); Hematocrit 28.7 VOL% (35.7-47.0); Hemoglobin 8.9 GM/DL (12.0-16.0); Immature Granulocytes % 0.3 %; Immature Granulocytes Absolute 0.03 #; Lymphocytes # 2.6 10*3/uL (1.4-4.0); Lymphocytes % 24.9 % (21.3-54.2); Mean Corpuscular Volume 94.1 FL (87-102); Mean Platelet Volume 10.2 FL (9.6-12.0); Monocytes % 9.2 % (1.7-12.7); Neutrophils % 60.6 % (38.7-73.9); Platelet Count 328 T/CUMM (130-400); Red Blood Count 3.05 MC/CUMM (3.8-5.5); Red Cell Distribution Width 14.6 % (9.3-17.3); White Blood Count 10.3 T/CUMM (4-12)
[2020-02-16] MEDS: GABAPENTIN 300 MG CAPSULE PO SCH ×2 (08:42→14:11)
[2020-02-16] MEDS: GLIMEPIRIDE 2 MG TABLET PO SCH (08:42)
[2020-02-16] MEDS: PANTOPRAZOLE 40 MG TABLET PO SCH (08:42)
[2020-02-16] MEDS ORDERED: amLODIPine 5 MG TABLET PO SCH (09:00)
[2020-02-16] MEDS ORDERED: FUROSEMIDE 40 MG TABLET PO SCH (09:00)
[2020-02-16 12:36] VITALS: BP 158/64
[2020-02-16] MEDS ORDERED: RIVAROXABAN 20 MG TABLET PO SCH (17:00)
== END 2020-02-16 15:30 | disposition home or self-care (01) | DRG 623 ==
LOC: N.TELEN → OBSVTOIN 02-13 00:40 → SUATTDRO 02-13 00:40 → N.3E 02-15 19:00
PROVIDERS: ADMIT Emergency Medicine; ATTEND Internal Medicine

== ENCOUNTER 2020-07-08 20:21 | Inpatient (IN) ==
[2020-07-08] MEDS ORDERED: DEXTROSE 50% 25 GM/50 ML VIAL IV PRN ×2 (23:09)
[2020-07-08] MEDS ORDERED: GLUCAGON 1 MG VIAL IM PRN (23:09)
[2020-07-09 00:51] LABS: Basophils # 0.1 10*3/uL (0.0-0.2); Basophils % 0.5 % (0.0-0.8); Eosinophils % 0.2 % (0.00-10.9); Hematocrit 26.1 VOL% (35.7-47.0); Hemoglobin 8.4 GM/DL (12.0-16.0); Immature Granulocytes % 0.5 %; Immature Granulocytes Absolute 0.06 #; Lymphocytes # 2.5 10*3/uL (1.4-4.0); Lymphocytes % 18.9 % (21.3-54.2); Mean Corpuscular HGB Conc 32.2 GM/DL (32-36); Mean Corpuscular Volume 92.9 FL (87-102); Monocytes % 6.5 % (1.7-12.7); Neutrophils % 73.4 % (38.7-73.9); Platelet Count 226 T/CUMM (130-400); Red Blood Count 2.81 MC/CUMM (3.8-5.5); White Blood Count 13.2 T/CUMM (4-12)
[2020-07-09] MEDS ORDERED: oxyCODONE/ACETAMINOPHEN 5-325 MG TABLET PO PRN (01:03)
[2020-07-09] MEDS: ACETAMINOPHEN 325 MG TABLET PO PRN ×3 (01:06→21:48)
[2020-07-09 01:13] LABS: Calcium 7.4 MG/DL (8.5-10.1); Osmolality,Calculated 275.5 MOS/KG (273-304)
[2020-07-09] MEDS ORDERED: hydrALAZINE 25 MG TABLET PO PRN (01:15)
[2020-07-09] MEDS ORDERED: SODIUM CHLORIDE 0.9% 500 ML IV ONE (01:19)
[2020-07-09 04:40] LABS: Basophils # 0.1 10*3/uL (0.0-0.2); Basophils % 0.5 % (0.0-0.8); Eosinophils % 0.2 % (0.00-10.9); Hematocrit 23.9 VOL% (35.7-47.0); Hemoglobin 7.5 GM/DL (12.0-16.0); Immature Granulocytes % 0.5 %; Immature Granulocytes Absolute 0.06 #; Lymphocytes # 1.8 10*3/uL (1.4-4.0); Lymphocytes % 14.6 % (21.3-54.2); Mean Corpuscular HGB Conc 31.4 GM/DL (32-36); Mean Corpuscular Volume 94.1 FL (87-102); Mean Platelet Volume 10.3 FL (9.6-12.0); Monocytes % 10.7 % (1.7-12.7); Neutrophils % 73.5 % (38.7-73.9); Platelet Count 187 T/CUMM (130-400); Red Blood Count 2.54 MC/CUMM (3.8-5.5); Red Cell Distribution Width 15.1 % (9.3-17.3); White Blood Count 12.5 T/CUMM (4-12)
[2020-07-09 05:11] LABS: Hemoglobin A1C 8.9 % (4.2-6.3); Vancomycin,Random 23.2 UG/ML
[2020-07-09 05:12] LABS: Alanine Aminotransferase < 9 U/L (13-56); Albumin 1.7 G/DL (3.4-5.0); Alkaline Phosphatase 127 U/L (45-117); Aspartate Amino Transferase 9 U/L (0-37); Blood Urea Nitrogen 19 MG/DL (7-18); Calcium 6.8 MG/DL (8.5-10.1); Estimated Glom Filtration Rate 13 ML/MIN; Glucose 263 MG/DL (74-106); Osmolality,Calculated 280.1 MOS/KG (273-304); Total Protein 6.7 G/DL (6.4-8.3)
[2020-07-09] MEDS ORDERED: MEROPENEM 500 MG in SODIUM CHLORIDE 0.9% 100 ML IV SCH (09:00)
[2020-07-09] MEDS: HYDROmorphone 2 MG/1 ML VIAL IV PRN ×2 (09:45→15:39)
[2020-07-09] MEDS: PANTOPRAZOLE 40 MG TABLET PO SCH (10:13)
[2020-07-09] MEDS: INSULIN LISPRO 100 UNIT/ML SUBCUT SCH ×4 (10:13→21:47)
[2020-07-09] MEDS: cefTRIAXone 2,000 MG in SYRINGE 1 EACH IV SCH ×2 (10:14→22:45)
[2020-07-09 10:44] LABS: Basophils # 0.1 10*3/uL (0.0-0.2); Basophils % 0.3 % (0.0-0.8); Eosinophils % 0.1 % (0.00-10.9); Hematocrit 23.6 VOL% (35.7-47.0); Hemoglobin 7.5 GM/DL (12.0-16.0); Immature Granulocytes % 0.6 %; Immature Granulocytes Absolute 0.09 #; Lymphocytes # 2.3 10*3/uL (1.4-4.0); Lymphocytes % 15.6 % (21.3-54.2); Mean Corpuscular HGB Conc 31.8 GM/DL (32-36); Mean Platelet Volume 10.2 FL (9.6-12.0); Monocytes % 10.2 % (1.7-12.7); Neutrophils % 73.2 % (38.7-73.9); Platelet Count 181 T/CUMM (130-400); Red Blood Count 2.51 MC/CUMM (3.8-5.5); Red Cell Distribution Width 15.1 % (9.3-17.3); White Blood Count 14.6 T/CUMM (4-12)
[2020-07-09 10:57] LABS: INR 1.1; PT Patient Result 11.6 SECS (9.8-11.9); Partial Thromboplastin Time 28.5 SECS (23.9-33.8)
[2020-07-09] MEDS ORDERED: EPOETIN ALFA-EPBX 10,000 UNIT/ML VIAL IV PRN (11:06)
[2020-07-09 11:20] LABS: Alanine Aminotransferase < 9 U/L (13-56); Albumin 1.7 G/DL (3.4-5.0); Alkaline Phosphatase 142 U/L (45-117); Aspartate Amino Transferase 14 U/L (0-37); Bilirubin,Total < 0.39 MG/DL (0.2-1.0); Blood Urea Nitrogen 20 MG/DL (7-18); Estimated Glom Filtration Rate 12 ML/MIN; Glucose 212 MG/DL (74-106); Osmolality,Calculated 276.2 MOS/KG (273-304); Total Protein 7.1 G/DL (6.4-8.3)
[2020-07-09] MEDS: AMPICILLIN INJ 2,000 MG in SODIUM CHLORIDE 0.9% 100 ML IV SCH ×2 (11:32→22:49)
[2020-07-09 12:11] LABS: Allen Test Positive
[2020-07-09 12:13] LABS: ABG Oxygen Saturation 97.7 % (95-100); ABG PCO2 41.2 MM HG (35-48); ABG PH 7.445 (7.35-7.45); ABG PO2 86.9 MM HG (80-95); ABG TCO2 26.7 MMOL/L (23-27)
[2020-07-09] MEDS: amLODIPine 5 MG TABLET PO SCH (12:58)
[2020-07-09] MEDS: ACYCLOVIR INJ 350 MG in SODIUM CHLORIDE 0.9% 100 ML IV SCH (13:58)
[2020-07-09] MEDS: HEPARIN DRIP 25,000 UNITS/500 ML PREMIX IV SCH (15:26)
[2020-07-09] MEDS ORDERED: IBUPROFEN 600 MG TABLET PO PRN (16:35)
[2020-07-09] MEDS ORDERED: RIVAROXABAN 20 MG TABLET PO SCH (17:00)
[2020-07-09] MEDS ORDERED: VANCOMYCIN INJ 1,000 MG in SODIUM CHLORIDE 0.9% 250 ML IV PRN (17:00)
[2020-07-09 17:35] LABS: Apearance,Urine Slightly Hazy (Clear); Bilirubin,Urine Negative (Negative); Blood, Urine Negative (Negative); Glucose,Urine (UA) >=500 mg/dL (Negative); Hyaline Casts,Urine 22 /LPF (0-3); Ketones,Urine Negative (Negative); Mucus,Urine Occasional /LPF (Occasional); Nitrite,Urine Negative (Negative); Protein,Urine >=500 MG/DL; RBC,Urine 7 /HPF (0-4); Squamous Epithelial Cell,Urine Occasional /HPF (0-10); Urine Color Yellow (Yellow); Urine Specific Gravity 1.022 (1.001-1.035); Urine Urobilinogen < 2.0 EU/DL (0.2-1.0); WBC,Urine 4 /HPF (0-6)
[2020-07-09] MEDS: INSULIN GLARGINE 100 UNIT/ML SUBCUT SCH ×2 (21:48)
[2020-07-10 04:27] LABS: Basophils # 0.1 10*3/uL (0.0-0.2); Basophils % 0.5 % (0.0-0.8); Eosinophils # 0.2 10*3/uL (0.0-0.87); Eosinophils % 1.7 % (0.00-10.9); Hemoglobin 7.6 GM/DL (12.0-16.0); Immature Granulocytes % 0.4 %; Immature Granulocytes Absolute 0.05 #; Lymphocytes # 2.5 10*3/uL (1.4-4.0); Lymphocytes % 20.7 % (21.3-54.2); Mean Corpuscular HGB Conc 31.7 GM/DL (32-36); Mean Corpuscular Volume 94.1 FL (87-102); Mean Platelet Volume 9.9 FL (9.6-12.0); Monocytes % 10.8 % (1.7-12.7); Neutrophils % 65.9 % (38.7-73.9); Platelet Count 184 T/CUMM (130-400); Red Blood Count 2.55 MC/CUMM (3.8-5.5); White Blood Count 12.3 T/CUMM (4-12)
[2020-07-10 04:53] LABS: Albumin 1.5 G/DL (3.4-5.0); Calcium 7.2 MG/DL (8.5-10.1); Osmolality,Calculated 278.1 MOS/KG (273-304)
[2020-07-10] MEDS: ACETAMINOPHEN 325 MG TABLET PO PRN (06:39)
[2020-07-10] MEDS: HYDROmorphone 2 MG/1 ML VIAL IV PRN ×3 (08:06→20:20)
[2020-07-10] MEDS: amLODIPine 5 MG TABLET PO SCH (08:18)
[2020-07-10] MEDS: PANTOPRAZOLE 40 MG TABLET PO SCH (08:18)
[2020-07-10] MEDS: INSULIN LISPRO 100 UNIT/ML SUBCUT SCH ×4 (08:18→20:29)
[2020-07-10] MEDS: cefTRIAXone 2,000 MG in SYRINGE 1 EACH IV SCH (08:31)
[2020-07-10] MEDS: AMPICILLIN INJ 2,000 MG in SODIUM CHLORIDE 0.9% 100 ML IV SCH (10:40)
[2020-07-10] MEDS ORDERED: HEPARIN 5,000 UNIT/1 ML VIAL IV ONE (14:09)
[2020-07-10] MEDS ORDERED: HEPARIN 10,000 UNIT/10 ML VIAL IV ONE (15:00)
[2020-07-10] MEDS: ACYCLOVIR INJ 350 MG in SODIUM CHLORIDE 0.9% 100 ML IV SCH (15:29)
[2020-07-10] MEDS ORDERED: VANCOMYCIN INJ 750 MG in SODIUM CHLORIDE 0.9% 250 ML IV SCH (20:00)
[2020-07-10] MEDS ORDERED: VANCOMYCIN INJ 1,000 MG in SODIUM CHLORIDE 0.9% 250 ML IV SCH (20:00)
[2020-07-10] MEDS: PIPERACILLIN/TAZOBACTAM 3,375 MG in SODIUM CHLORIDE 0.9% 100 ML IV SCH (20:22)
[2020-07-10] MEDS: INSULIN GLARGINE 100 UNIT/ML SUBCUT SCH ×2 (20:30)
[2020-07-11] MEDS: HYDROmorphone 2 MG/1 ML VIAL IV PRN ×2 (01:08→08:22)
[2020-07-11 04:42] LABS: Basophils # 0.1 10*3/uL (0.0-0.2); Basophils % 0.5 % (0.0-0.8); Eosinophils # 0.1 10*3/uL (0.0-0.87); Eosinophils % 0.8 % (0.00-10.9); Hematocrit 21.3 VOL% (35.7-47.0); Hemoglobin 6.9 GM/DL (12.0-16.0); Immature Granulocytes % 0.4 %; Immature Granulocytes Absolute 0.04 #; Lymphocytes % 26.9 % (21.3-54.2); Mean Corpuscular HGB Conc 32.4 GM/DL (32-36); Mean Corpuscular Volume 92.2 FL (87-102); Mean Platelet Volume 10.8 FL (9.6-12.0); Monocytes % 13.1 % (1.7-12.7); Neutrophils % 58.3 % (38.7-73.9); Platelet Count 210 T/CUMM (130-400); Red Blood Count 2.31 MC/CUMM (3.8-5.5); Red Cell Distribution Width 14.8 % (9.3-17.3)
[2020-07-11 04:55] LABS: INR 1.1; PT Patient Result 11.6 SECS (9.8-11.9); Partial Thromboplastin Time 49.2 SECS (23.9-33.8)
[2020-07-11 05:06] LABS: Calcium 6.9 MG/DL (8.5-10.1); Osmolality,Calculated 280.4 MOS/KG (273-304)
[2020-07-11 05:07] LABS: Albumin 1.5 G/DL (3.4-5.0); Calcium 6.8 MG/DL (8.5-10.1); Osmolality,Calculated 282.2 MOS/KG (273-304)
[2020-07-11] MEDS: PIPERACILLIN/TAZOBACTAM 3,375 MG in SODIUM CHLORIDE 0.9% 100 ML IV SCH ×2 (08:24→14:59)
[2020-07-11] MEDS: INSULIN LISPRO 100 UNIT/ML SUBCUT SCH ×3 (08:24→17:58)
[2020-07-11] MEDS: amLODIPine 5 MG TABLET PO SCH (08:25)
[2020-07-11] MEDS: PANTOPRAZOLE 40 MG TABLET PO SCH (08:25)
[2020-07-11] MEDS: HEPARIN DRIP 25,000 UNITS/500 ML PREMIX IV SCH (11:39)
[2020-07-11] MEDS: ACYCLOVIR INJ 350 MG in SODIUM CHLORIDE 0.9% 100 ML IV SCH (12:40)
[2020-07-11] MEDS ORDERED: GABAPENTIN 600 MG TABLET PO SCH (15:00)
[2020-07-11] MEDS ORDERED: oxyCODONE/ACETAMINOPHEN 5-325 MG TABLET PO SCH (15:00)
[2020-07-11] MEDS ORDERED: VANCOMYCIN INJ 1,000 MG in SODIUM CHLORIDE 0.9% 250 ML IV ONE (17:00)
[2020-07-11 17:43] VITALS: BP 124/66
[2020-07-11 17:50] LABS: Hepatitis B Surface Ag Quant < 0.10 Index; Hepatitis B Surface Ag Result Negative (Negative)
[2020-07-11 20:04] LABS: Appearance,CSF Clear; Red Blood Cell,CSF 21 C/CUMM; White Blood Cell,CSF 9 C/CUMM
[2020-07-11 21:08] LABS: Lymphocytes,CSF 100 %
== END 2020-07-11 18:37 | disposition hospice, home (50) | DRG 871 ==
LOC: SUATTDRO 22:20 → N.TELES 22:20
PROVIDERS: ADMIT Internal Medicine; ATTEND Internal Medicine

== ENCOUNTER 2021-03-15 05:23 | Inpatient (IN) ==
[2021-03-15] MEDS ORDERED: SODIUM CHLORIDE 0.9% 250 ML IV SCH (06:30)
[2021-03-15] MEDS ORDERED: hydrALAZINE 20 MG/1 ML VIAL IV STA (06:41)
[2021-03-15] MEDS ORDERED: DIAZEPAM 5 MG TABLET PO ONE (06:42)
[2021-03-15] MEDS ORDERED: FAMOTIDINE 20 MG TABLET PO ONE (06:42)
[2021-03-15] MEDS ORDERED: ceFAZolin 1,000 MG VIAL ONE (06:47)
[2021-03-15 07:17] LABS: Basophils # 0.1 10*3/uL (0.0-0.2); Basophils % 0.8 % (0.0-0.8); Eosinophils # 0.2 10*3/uL (0.0-0.87); Eosinophils % 2.1 % (0.00-10.9); Hematocrit 38.7 VOL% (35.7-47.0); Hemoglobin 12.2 GM/DL (12.0-16.0); Immature Granulocytes % 0.4 %; Immature Granulocytes Absolute 0.04 #; Lymphocytes # 1.7 10*3/uL (1.4-4.0); Lymphocytes % 18.9 % (21.3-54.2); Mean Corpuscular HGB Conc 31.5 GM/DL (32-36); Mean Corpuscular Volume 96.8 FL (87-102); Mean Platelet Volume 11.4 FL (9.6-12.0); Monocytes % 7.9 % (1.7-12.7); Neutrophils % 69.9 % (38.7-73.9); Platelet Count 225 T/CUMM (130-400); Red Cell Distribution Width 15.3 % (9.3-17.3); White Blood Count 9.1 T/CUMM (4-12)
[2021-03-15] MEDS ORDERED: INSULIN REGULAR 100 UNIT/ML IV STA (07:49)
[2021-03-15 08:38] LABS: Calcium 6.3 MG/DL (8.5-10.1); Osmolality,Calculated 307.1 MOS/KG (273-304); Potassium 5.5 MMOL/L (3.5-5.1)
[2021-03-15] MEDS ORDERED: BISACODYL 5 MG TABLET PO PRN (08:42)
[2021-03-15] MEDS ORDERED: ALBUTEROL/IPRATROPIUM 3 ML NEB RESP TX PRN (08:42)
[2021-03-15] MEDS ORDERED: GLUCAGON 1 MG VIAL IM PRN (08:42)
[2021-03-15] MEDS ORDERED: DEXTROSE 50% 25 GM/50 ML VIAL IV PRN (08:42)
[2021-03-15] MEDS ORDERED: ONDANSETRON 4 MG/2 ML VIAL IV PRN (08:42)
[2021-03-15] MEDS ORDERED: BUPIVACAINE MPF 0.25% 30 ML VIAL ONE (08:47)
[2021-03-15] MEDS ORDERED: HEPARIN 5,000 UNIT/1 ML VIAL ONE (08:47)
[2021-03-15] MEDS ORDERED: LIDOCAINE 1%/EPI INJ 20 ML VIAL ONE (08:48)
[2021-03-15] MEDS ORDERED: MIDAZOLAM 2 MG/2 ML VIAL ONE (09:15)
[2021-03-15] MEDS ORDERED: fentaNYL 100 MCG/2 ML VIAL ONE (09:15)
[2021-03-15] MEDS ORDERED: LIDOCAINE 2% 5 ML VIAL ONE (09:53)
[2021-03-15] MEDS ORDERED: propofoL 200 MG/20 ML VIAL IV ONE (09:53)
[2021-03-15] MEDS ORDERED: PIPERACILLIN/TAZOBACTAM 3,375 MG in SODIUM CHLORIDE 0.9% 100 ML IV SCH (10:00)
[2021-03-15] MEDS ORDERED: VANCOMYCIN INJ 500 MG in SODIUM CHLORIDE 0.9% 100 ML IV PRN (10:51)
[2021-03-15] MEDS: GABAPENTIN 300 MG CAPSULE PO SCH ×3 (11:12→21:57)
[2021-03-15] MEDS: PANTOPRAZOLE 40 MG TABLET PO SCH (11:17)
[2021-03-15] MEDS: lisinopriL 5 MG TABLET PO SCH ×2 (11:17→21:57)
[2021-03-15] MEDS: INSULIN LISPRO 100 UNIT/ML SUBCUT SCH ×2 (11:22→16:42)
[2021-03-15] MEDS ORDERED: hydrALAZINE 20 MG/1 ML VIAL IV PRN (11:46)
[2021-03-15] MEDS: oxyCODONE/ACETAMINOPHEN 5-325 MG TABLET PO PRN ×2 (12:13→18:04)
[2021-03-15] MEDS ORDERED: HEPARIN 10,000 UNIT/10 ML VIAL IV PRN (12:38)
[2021-03-15] MEDS ORDERED: VANCOMYCIN INJ 1,750 MG in SODIUM CHLORIDE 0.9% 500 ML IV ONE ×2 (13:00→17:00)
[2021-03-15 13:17] LABS: Hepatitis B Core IgM Quant < 0.05 Index; Hepatitis B Surface Ag Quant < 0.10 Index; Hepatitis B Surface Ag Result Non-Reactive (NonReactive); Hepatitis C Virus Ab Quant 0.06 Index; Hepatitis C Virus Ab Result Non-Reactive (NonReactive)
[2021-03-15] MEDS: HYDROmorphone 2 MG/1 ML VIAL IV PRN ×2 (14:15→22:40)
[2021-03-15] MEDS ORDERED: INSULIN GLARGINE 100 UNIT/ML SUBCUT SCH (21:00)
[2021-03-16] MEDS: PIPERACILLIN/TAZOBACTAM 3,375 MG in SODIUM CHLORIDE 0.9% 100 ML IV SCH ×3 (00:26→20:33)
[2021-03-16] MEDS: HYDROmorphone 2 MG/1 ML VIAL IV PRN ×9 (02:19→23:50)
[2021-03-16 05:58] LABS: Basophils # 0.1 10*3/uL (0.0-0.2); Basophils % 0.9 % (0.0-0.8); Eosinophils # 0.3 10*3/uL (0.0-0.87); Hematocrit 34.4 VOL% (35.7-47.0); Hemoglobin 10.9 GM/DL (12.0-16.0); Immature Granulocytes % 0.4 %; Immature Granulocytes Absolute 0.03 #; Lymphocytes # 2.4 10*3/uL (1.4-4.0); Lymphocytes % 35.8 % (21.3-54.2); Mean Corpuscular HGB Conc 31.7 GM/DL (32-36); Mean Corpuscular Volume 95.6 FL (87-102); Mean Platelet Volume 11.1 FL (9.6-12.0); Monocytes % 9.7 % (1.7-12.7); Neutrophils % 49.2 % (38.7-73.9); Platelet Count 195 T/CUMM (130-400); Red Cell Distribution Width 15.1 % (9.3-17.3); White Blood Count 6.8 T/CUMM (4-12)
[2021-03-16 06:17] LABS: Calcium 6.8 MG/DL (8.5-10.1); Osmolality,Calculated 290.5 MOS/KG (273-304); Potassium 4.2 MMOL/L (3.5-5.1)
[2021-03-16] MEDS: INSULIN LISPRO 100 UNIT/ML SUBCUT SCH ×3 (07:52→18:21)
[2021-03-16] MEDS: PANTOPRAZOLE 40 MG TABLET PO SCH (08:20)
[2021-03-16] MEDS: lisinopriL 5 MG TABLET PO SCH ×2 (08:20→20:28)
[2021-03-16] MEDS: GABAPENTIN 300 MG CAPSULE PO SCH ×3 (08:20→20:28)
[2021-03-16] MEDS ORDERED: VANCOMYCIN INJ 500 MG in SODIUM CHLORIDE 0.9% 100 ML IV ONE (17:00)
[2021-03-17 05:54] LABS: Basophils # 0.1 10*3/uL (0.0-0.2); Basophils % 0.7 % (0.0-0.8); Eosinophils # 0.3 10*3/uL (0.0-0.87); Eosinophils % 3.8 % (0.00-10.9); Hematocrit 32.2 VOL% (35.7-47.0); Hemoglobin 10.2 GM/DL (12.0-16.0); Immature Granulocytes % 0.4 %; Immature Granulocytes Absolute 0.03 #; Lymphocytes % 27.2 % (21.3-54.2); Mean Corpuscular HGB Conc 31.7 GM/DL (32-36); Mean Corpuscular Volume 94.4 FL (87-102); Mean Platelet Volume 10.9 FL (9.6-12.0); Monocytes % 11.5 % (1.7-12.7); Neutrophils % 56.4 % (38.7-73.9); Platelet Count 176 T/CUMM (130-400); Red Blood Count 3.41 MC/CUMM (3.8-5.5); Red Cell Distribution Width 14.8 % (9.3-17.3); White Blood Count 7.2 T/CUMM (4-12)
[2021-03-17 06:16] LABS: Calcium 7.2 MG/DL (8.5-10.1); Potassium 4.4 MMOL/L (3.5-5.1)
[2021-03-17] MEDS ORDERED: BUPIVACAINE MPF 0.25% 30 ML VIAL ONE (06:27)
[2021-03-17] MEDS ORDERED: LIDOCAINE 1% 20 ML VIAL ONE (06:28)
[2021-03-17] MEDS ORDERED: fentaNYL 100 MCG/2 ML VIAL ONE (06:35)
[2021-03-17] MEDS ORDERED: LIDOCAINE 2% 5 ML VIAL ONE (06:35)
[2021-03-17] MEDS ORDERED: MIDAZOLAM 2 MG/2 ML VIAL ONE (06:35)
[2021-03-17] MEDS ORDERED: propofoL 200 MG/20 ML VIAL IV ONE (06:35)
[2021-03-17] MEDS: INSULIN LISPRO 100 UNIT/ML SUBCUT SCH ×3 (07:15→17:38)
[2021-03-17] MEDS ORDERED: SODIUM CHLORIDE 0.9% 250 ML IV ONE (07:33)
[2021-03-17] MEDS ORDERED: MAGNESIUM SULF RIDER 2 GM/50 ML PREMIX IV ONE ×2 (07:46→12:00)
[2021-03-17] MEDS ORDERED: ONDANSETRON 4 MG/2 ML VIAL IV PRN (07:58)
[2021-03-17] MEDS: HYDROmorphone 2 MG/1 ML VIAL IV PRN ×9 (08:04→20:20)
[2021-03-17] MEDS: lisinopriL 5 MG TABLET PO SCH ×2 (08:56→20:19)
[2021-03-17] MEDS: PANTOPRAZOLE 40 MG TABLET PO SCH (08:56)
[2021-03-17] MEDS: GABAPENTIN 300 MG CAPSULE PO SCH ×3 (08:56→20:20)
[2021-03-17] MEDS: PIPERACILLIN/TAZOBACTAM 3,375 MG in SODIUM CHLORIDE 0.9% 100 ML IV SCH ×2 (08:57→20:26)
[2021-03-17] MEDS ORDERED: DEXTROSE 50% 25 GM/50 ML VIAL IV PRN (08:58)
[2021-03-17] MEDS: amLODIPine 5 MG TABLET PO SCH (11:08)
[2021-03-17] MEDS ORDERED: INSULIN GLARGINE 100 UNIT/ML SUBCUT SCH (21:00)
[2021-03-18] MEDS: HYDROmorphone 2 MG/1 ML VIAL IV PRN ×10 (00:06→22:45)
[2021-03-18 05:19] LABS: Basophils # 0.1 10*3/uL (0.0-0.2); Basophils % 0.7 % (0.0-0.8); Eosinophils # 0.3 10*3/uL (0.0-0.87); Eosinophils % 4.5 % (0.00-10.9); Hematocrit 30.3 VOL% (35.7-47.0); Hemoglobin 9.8 GM/DL (12.0-16.0); Immature Granulocytes % 0.5 %; Immature Granulocytes Absolute 0.04 #; Lymphocytes # 2.1 10*3/uL (1.4-4.0); Mean Corpuscular HGB Conc 32.3 GM/DL (32-36); Mean Corpuscular Volume 93.5 FL (87-102); Mean Platelet Volume 10.6 FL (9.6-12.0); Monocytes % 11.5 % (1.7-12.7); Neutrophils % 55.8 % (38.7-73.9); Platelet Count 167 T/CUMM (130-400); Red Blood Count 3.24 MC/CUMM (3.8-5.5); Red Cell Distribution Width 14.8 % (9.3-17.3); White Blood Count 7.6 T/CUMM (4-12)
[2021-03-18 05:57] LABS: Calcium 6.9 MG/DL (8.5-10.1); Osmolality,Calculated 295.2 MOS/KG (273-304); Potassium 4.5 MMOL/L (3.5-5.1)
[2021-03-18] MEDS: PIPERACILLIN/TAZOBACTAM 3,375 MG in SODIUM CHLORIDE 0.9% 100 ML IV SCH ×2 (08:13→21:05)
[2021-03-18] MEDS: INSULIN LISPRO 100 UNIT/ML SUBCUT SCH ×3 (08:14→16:35)
[2021-03-18] MEDS: PANTOPRAZOLE 40 MG TABLET PO SCH (08:14)
[2021-03-18] MEDS: amLODIPine 5 MG TABLET PO SCH (08:15)
[2021-03-18] MEDS: GABAPENTIN 300 MG CAPSULE PO SCH ×3 (08:15→21:02)
[2021-03-18] MEDS: lisinopriL 5 MG TABLET PO SCH ×2 (08:15→21:02)
[2021-03-18] MEDS ORDERED: INSULIN GLARGINE 100 UNIT/ML SUBCUT SCH (21:00)
[2021-03-19] MEDS: HYDROmorphone 2 MG/1 ML VIAL IV PRN ×3 (02:50→10:31)
[2021-03-19] MEDS: INSULIN LISPRO 100 UNIT/ML SUBCUT SCH ×2 (08:09→12:32)
[2021-03-19] MEDS: GABAPENTIN 300 MG CAPSULE PO SCH ×2 (08:10→14:32)
[2021-03-19] MEDS: PANTOPRAZOLE 40 MG TABLET PO SCH (08:10)
[2021-03-19] MEDS: PIPERACILLIN/TAZOBACTAM 3,375 MG in SODIUM CHLORIDE 0.9% 100 ML IV SCH (08:10)
[2021-03-19] MEDS: SEVELAMER CARBONATE 800 MG TABLET PO SCH ×2 (08:10→12:32)
[2021-03-19] MEDS: amLODIPine 5 MG TABLET PO SCH (08:10)
[2021-03-19] MEDS: lisinopriL 5 MG TABLET PO SCH (08:10)
[2021-03-19 09:49] LABS: Basophils % 0.5 % (0.0-0.8); Eosinophils # 0.3 10*3/uL (0.0-0.87); Eosinophils % 3.6 % (0.00-10.9); Hematocrit 30.5 VOL% (35.7-47.0); Immature Granulocytes % 0.7 %; Immature Granulocytes Absolute 0.05 #; Lymphocytes # 1.3 10*3/uL (1.4-4.0); Lymphocytes % 16.6 % (21.3-54.2); Mean Corpuscular HGB Conc 32.8 GM/DL (32-36); Mean Corpuscular Volume 92.4 FL (87-102); Mean Platelet Volume 10.8 FL (9.6-12.0); Monocytes % 6.7 % (1.7-12.7); Neutrophils % 71.9 % (38.7-73.9); Platelet Count 177 T/CUMM (130-400); Red Cell Distribution Width 14.9 % (9.3-17.3); White Blood Count 7.6 T/CUMM (4-12)
[2021-03-19 10:23] LABS: Calcium 7.7 MG/DL (8.5-10.1); Osmolality,Calculated 291.5 MOS/KG (273-304); Potassium 3.8 MMOL/L (3.5-5.1)
[2021-03-19] MEDS ORDERED: TUBERCULIN SKIN TEST 0.1 ML SYRINGE INTRADERM ONE (11:00)
[2021-03-19 12:40] VITALS: BP 161/82
[2021-03-19] MEDS: oxyCODONE/ACETAMINOPHEN 5-325 MG TABLET PO PRN (14:32)
[2021-03-19] MEDS ORDERED: VANCOMYCIN INJ 500 MG in SODIUM CHLORIDE 0.9% 100 ML IV SCH (18:00)
[2021-03-19] MEDS ORDERED: INSULIN GLARGINE 100 UNIT/ML SUBCUT SCH (21:00)
== END 2021-03-19 17:15 | disposition home or self-care (01) | DRG 981 ==
LOC: N.SDSINP 05:23 → N.OR 05:23 → N.SDSINP 05:24 → N.5E 10:46
PROVIDERS: ADMIT Surgery; ATTEND Surgery